=== PATIENT | female | born 1935 | race African-American/Black ===

== ENCOUNTER 2016-09-15 16:11 | Inpatient (IN) | payer MEDICARE, OTHER ==
[~2016-09-15] VITALS: Ht 165.1 cm; Wt 145.3 kg
[2016-09-15 18:00] VITALS: BP 140/71
[2016-09-15 20:00] VITALS: BP 115/51
[2016-09-15 20:16] LABS: BASOPHILS % (AUTO) 2.1 % (0.0-2.0); EOSINOPHILS % (AUTO) 3.6 % (0.0-3.0); LYMPHOCYTES % (AUTO) 14.7 % (20.0-45.0); MEAN CORPUSCULAR HEMOGLOBIN 28.6 PG (27.0-31.0); MEAN CORPUSCULAR HGB CONC 30.5 G/DL (32.0-36.0); MEAN CORPUSCULAR VOLUME 94 FL (80-99); MONOCYTES % (AUTO) 9.3 % (1.0-10.0); NEUTROPHILS % (AUTO) 70.2 % (45.0-75.0); PLATELET COUNT 172 K/UL (150-450); RED BLOOD COUNT 3.61 M/UL (4.20-5.40)
[2016-09-15 20:31] LABS: ALANINE AMINOTRANSFERASE 13 U/L (3-33); ANION GAP 11 (5-15); ASPARTATE AMINO TRANSFERASE 15 U/L (5-40); CALCIUM 9.1 mg/dL (8.6-10.2); CARBON DIOXIDE 30 mEQ/L (20-30); CHLORIDE 102 mEQ/L (98-107); CREATININE 1.1 mg/dL (0.5-0.9); HEMOLYSIS 1; POTASSIUM 4.1 mEQ/L (3.4-4.9); SODIUM 143 mEQ/L (135-145); TOTAL PROTEIN 6.5 g/dL (6.6-8.7)
[2016-09-15] MEDS: NovoLOG Insulin Flexpen SUBQ SCH (22:10)
[2016-09-15] MEDS ORDERED: clonazePAM 0.5mg tab ORAL PRN (22:45)
[2016-09-15] MEDS ORDERED: HydrALAZINE 25mg tab ORAL PRN (22:45)
[2016-09-16] MEDS: guaiFENesin w/Codeine 5ml Liq ud ORAL PRN (00:27)
[2016-09-16 00:36] VITALS: BP 132/40
[2016-09-16] MEDS ORDERED: Zolpidem 5mg tab ORAL PRN (00:45)
[2016-09-16] MEDS: DuoNeb 0.5-3(2.5)mg/3ml neb HHN SCH ×6 (03:20→23:36)
[2016-09-16 04:05] VITALS: BP 120/62
[2016-09-16] MEDS: Glimepiride 4mg tab ORAL SCH ×2 (06:22→11:34)
[2016-09-16] MEDS: sitaGLIPtin 50mg tab ORAL SCH (06:22)
[2016-09-16] MEDS: NovoLOG Insulin Flexpen SUBQ SCH ×4 (06:24→21:29)
[2016-09-16 07:57] VITALS: BP 106/63
[2016-09-16] MEDS: metFORMIN 500mg tab ORAL SCH ×2 (08:50→18:00)
[2016-09-16] MEDS: Spironolactone 25mg tab ORAL SCH (08:50)
[2016-09-16] MEDS: KCl 10% 20 mEq/15ml liquid NG SCH ×2 (08:50→17:53)
[2016-09-16 11:38] VITALS: BP 135/56
--- NOTE | 2016-09-16 11:41 | Diagnostic Imaging Report ---
Indications: Shortness of breath Technique: Portable AP chest Findings: Comparison: 01/11/2011 Cardiomegaly, pulmonary vascular redistribution, bilateral interstitial prominence all again noted, not significantly changed. No pleural or other new abnormality demonstrated. IMPRESSION: Bilateral congestive changes, persistent versus recurrent since previous exam
--- NOTE | 2016-09-16 13:48 | History and Physical Report ---
DATE OF ADMISSION: 09/15/2016 NOTE: VERY POOR AUDIO QUALITY REASON FOR ADMISSION: Shortness of breath. HISTORY OF PRESENT ILLNESS: This is an female, age 81 came . She was seen in my office yesterday complaining of progressive shortness of breath and leg swelling described increasing day to day diuretic therapy. She has cough, congestion, and wheezing, but was able to manage that with her inhaler. The patient did not have any chest pain. She has been compliant with medications and dietary discretion . PAST MEDICAL HISTORY: Hypertension, hypertensive heart disease, conduction system disease, chronic atrial fibrillation, sxx-dirtvdl-uohqjvgho diabetes mellitus, diabetic nephropathy, diabetic neuropathy, obesity, peripheral artery disease, osteoarthritis, degenerative disk disease, diastolic dysfunction with chronic congestive heart failure, and COPD. MEDICATIONS: Prior to admission, reviewed and reconciled. ALLERGIES: None. SOCIAL HISTORY: Chronic smoker. No alcohol or substance abuse. FAMILY HISTORY: Notable for diabetes. REVIEW OF SYSTEMS: No fevers or chills. No history of retinopathy or hearing loss. No history of thyroid disorder. She is on antiaggressive therapy as well as rxf-chhcdxf-sazczffgq diabetes. There is no history of seizure or stroke. She does not have neuropathy. She had myocardial perfusion scan revealing flow-limiting coronary artery disease. Her most recent echocardiogram revealed normal ejection fraction, concentric hypertrophy, and mild degenerative joint disease, and minimally elevated pulmonary artery systolic pressure. She does have chronic atrial fibrillation and is on cardioembolic prophylaxis with for several years. She does have a history of COPD and has been on steroids and in the past. She uses inhaler therapy regularly. PHYSICAL EXAMINATION: GENERAL: female in mild respiratory distress. VITAL SIGNS: Blood pressure 130/71, pulse 69, respirations 23, and afebrile. HEENT: Conjunctivae pink. Sclerae are anicteric. Eyes, pupils are reactive . Oropharynx clear. Mucous membranes dry. NECK: Supple. Jugular venous pressure elevated. LUNGS: Diminished breath sounds with basilar rales. CARDIAC: Irregularly irregular. Distant S1 and S2. No murmur. ABDOMEN: with no discrete masses. Obese and soft. There is no guarding or rebound. Cannot palpate . EXTREMITIES: With 2+ to 3+ bilateral pretibial edema. Distal pulses are diminished, but capillary refill is adequate. NEUROLOGIC: Strength is symmetric. The patient ambulates with the use of a walker. LABORATORY AND IMAGING DATA: White count is 7, hemoglobin 7.3. Sodium 143, potassium 4.9, bicarbonate 30, BUN 20, creatinine 1.1, glucose 230, Pro-natriuretic peptide is 2673, albumin 3.4, and TSH 1.7. An echocardiogram yesterday also revealed atrial fibrillation with nonspecific ST-T wave changes and rate control at 71 beats per minute. IMPRESSION: 1. Acute on chronic diastolic congestive heart failure. 2. Atrial fibrillation chronic and rate controlled. 3. coagulopathy. 4. Nbt-bmuqtes-tsmtphnna diabetes mellitus with hyperglycemia. 5. Minimal protein-calorie malnutrition. 6. Gastrointestinal disease . 7. History of chronic obstructive pulmonary disease with paroxysmal bronchospasm. PLAN: 1. Diet, which was intravenously diuretic. 2. Cardiac non-insulin. 3. Titrate antihypertensive regimen. 4. Insulin coverage by sliding scale. 5. Titrate oral diabetic regimen. 6. Continue cardiac diet prophylaxis with . 7. Inhaled bronchodilators as well as steroids. Acute bronchospasm . Juan Harris M.D. DR: SINGH JOB#: [id number] CC:
[2016-09-16 16:10] VITALS: BP 119/50
[2016-09-16 18:17] LABS: APPEARANCE,URINE CLEAR; KETONES,URINE NEGATIVE (NEGATIVE); LEUKOCYTE ESTERASE ,URINE 3+ (NEGATIVE); NITRITE,URINE NEGATIVE (NEGATIVE); PH,URINE 5 (4.5-8.0); PROTEIN,URINE NEGATIVE (NEGATIVE); UROBILINOGEN,URINE NORMAL MG/DL (0.0-1.0)
[2016-09-16 18:27] LABS: BACTERIA,URINE OCCASIONAL /HPF; RBC,URINE 0-2 /HPF (0 - 2); SQUAMOUS EPITHELIAL CELL,UR OCCASIONAL /LPF (NONE/OCC)
[2016-09-16 20:00] VITALS: BP 122/58
[2016-09-17] MEDS: guaiFENesin w/Codeine 5ml Liq ud ORAL PRN (00:04)
[2016-09-17 00:27] VITALS: BP 124/49
[2016-09-17] MEDS: DuoNeb 0.5-3(2.5)mg/3ml neb HHN SCH ×6 (02:42→23:31)
--- NOTE | 2016-09-17 02:58 | Progress Note ---
DATE: 09/16/2016 INTERNAL MEDICINE AND CARDIOLOGY PROGRESS NOTE SUBJECTIVE: The patient remains on IV diuretics and anti-failure regimen. Her glucose is being monitored with Accu-Cheks. monitoring engineer revealed atrial fibrillation that is rate controlled with no pauses. The patient's urine output has increased from her baseline. She has refused a Rainey catheter for measurement. OBJECTIVE: VITAL SIGNS: Blood pressure 122/58, pulse 72, and respirations 18. HEENT: Obese neck. LUNGS: Bilateral rales. No wheezing. HEART: Irregularly irregular rhythm. Normal S1 and S2. EXTREMITIES: Revealed 2+ to 3+ pitting edema bilaterally. LABORATORY DATA: Pro-natriuretic peptide on admission was 2673. IMPRESSION: 1. Acute on chronic diastolic congestive heart failure. 2. Hypertensive heart disease. 3. Atrial fibrillation, rate controlled. 4. Type 2 diabetes mellitus. 5. Obesity. PLAN: 1. Optimize blood glucose control. 2. Continue diuresis. 3. Titrate respiratory therapy. 4. Continue for cardioembolic prophylaxis. Juan Harris M.D. DR: JOANNE JOB#: [id number] CC:
[2016-09-17 04:24] VITALS: BP 103/71
[2016-09-17 05:58] LABS: BASOPHILS % (AUTO) 2.6 % (0.0-2.0); EOSINOPHILS % (AUTO) 4.8 % (0.0-3.0); LYMPHOCYTES % (AUTO) 20.7 % (20.0-45.0); MEAN CORPUSCULAR HEMOGLOBIN 28.9 PG (27.0-31.0); MEAN CORPUSCULAR HGB CONC 31.2 G/DL (32.0-36.0); MEAN CORPUSCULAR VOLUME 93 FL (80-99); MEAN PLATELET VOLUME 7.5 FL (6.5-10.1); MONOCYTES % (AUTO) 8.2 % (1.0-10.0); NEUTROPHILS % (AUTO) 63.7 % (45.0-75.0); PLATELET COUNT 186 K/UL (150-450); RED BLOOD COUNT 3.81 M/UL (4.20-5.40); RED CELL DISTRIBUTION WIDTH 15.2 % (11.6-14.8); WHITE BLOOD COUNT 7.3 K/UL (4.8-10.8)
[2016-09-17] MEDS: sitaGLIPtin 50mg tab ORAL SCH (06:21)
[2016-09-17] MEDS: Glimepiride 4mg tab ORAL SCH ×2 (06:21→11:23)
[2016-09-17] MEDS: NovoLOG Insulin Flexpen SUBQ SCH ×4 (06:24→20:51)
[2016-09-17 06:27] LABS: ALANINE AMINOTRANSFERASE 13 U/L (3-33); ANION GAP 12 (5-15); ASPARTATE AMINO TRANSFERASE 14 U/L (5-40); CALCIUM 9.1 mg/dL (8.6-10.2); CARBON DIOXIDE 28 mEQ/L (20-30); CHLORIDE 101 mEQ/L (98-107); CREATININE 1.2 mg/dL (0.5-0.9); HEMOLYSIS 2; MAGNESIUM 1.6 mg/dL (1.7-2.5); POTASSIUM 4.5 mEQ/L (3.4-4.9); SODIUM 141 mEQ/L (135-145); TOTAL PROTEIN 6.7 g/dL (6.6-8.7)
[2016-09-17 07:52] VITALS: BP 132/57
[2016-09-17] MEDS: metFORMIN 500mg tab ORAL SCH ×2 (08:35→18:33)
[2016-09-17] MEDS: KCl 10% 20 mEq/15ml liquid NG SCH ×2 (08:35→18:34)
[2016-09-17] MEDS: Spironolactone 25mg tab ORAL SCH (08:35)
[2016-09-17 11:21] VITALS: BP 99/49
[2016-09-17 16:00] VITALS: BP 118/58
[2016-09-17 20:00] VITALS: BP 116/61
[2016-09-18 00:15] VITALS: BP 132/59
[2016-09-18] MEDS: DuoNeb 0.5-3(2.5)mg/3ml neb HHN SCH ×6 (02:07→23:00)
[2016-09-18 04:14] VITALS: BP 123/70
[2016-09-18] MEDS: Glimepiride 4mg tab ORAL SCH ×2 (06:30→11:30)
[2016-09-18] MEDS: sitaGLIPtin 50mg tab ORAL SCH (06:30)
[2016-09-18] MEDS: NovoLOG Insulin Flexpen SUBQ SCH ×4 (06:30→21:28)
[2016-09-18 08:00] VITALS: BP 121/55
[2016-09-18] MEDS: metFORMIN 500mg tab ORAL SCH ×2 (09:00→17:02)
[2016-09-18] MEDS: KCl 10% 20 mEq/15ml liquid NG SCH ×2 (09:03→17:01)
[2016-09-18] MEDS: Spironolactone 25mg tab ORAL SCH (09:07)
[2016-09-18 12:00] VITALS: BP 113/60
[2016-09-18 16:00] VITALS: BP 119/53
[2016-09-18] MEDS: guaiFENesin w/Codeine 5ml Liq ud ORAL PRN (17:01)
[2016-09-18 20:00] VITALS: BP 131/64
[2016-09-19] VITALS: BP 140/55
--- NOTE | 2016-09-19 00:57 | Progress Note ---
DATE: 09/17/2016 CARDIOLOGY PROGRESS NOTE Late entry for 09/17/2016. SUBJECTIVE: The patient continues to have shortness of breath with movement out of bed and leg swelling. He has not had chest pain. His urine output is notably good, but we have not been able to calculate strict Is and Os. OBJECTIVE: VITAL SIGNS: Blood pressure 118/58, pulse 64, and respirations 21, afebrile, monitor his atrial fibrillation. NECK: Obese. LUNGS: Diminished breath sounds. Few rales. CARDIAC: Irregularly irregular rhythm. Normal S1, S2. ABDOMEN: Soft. EXTREMITIES: With 2 to 3+ edema. LABORATORY DATA: White count 7.3, hemoglobin 11, BUN 24, creatinine 1.2, glucose 220, pro-natriuretic peptide 2700. IMPRESSION: 1. Jtkyg-mw-ucxzvmv diastolic congestive heart failure. 2. Atrial fibrillation with controlled ventricular response. 3. Hypertensive heart disease with controlled blood pressure. 4. Forle-ql-rdsuabx kidney insufficiency. 5. Non-insulin requiring diabetes mellitus with hyperglycemia. 6. Chronic obstructive pulmonary disease with no active bronchospasm PLAN: 1. Continue intravenous diuresis advanced dosing. 2. Continue current antihypertensive. 3. Followup urine studies. 4. Cardioembolic prophylaxis with Pradaxa. 5. Titrate diabetic regimen and monitor renal parameters. 6. Continue inhaled bronchodilators. Juan Harris M.D. DRShreya BENJAMIN JOB#: [id number] CC:
--- NOTE | 2016-09-19 01:08 | Progress Note ---
DATE: 09/18/2016 CARDIOLOGY PROGRESS NOTE SUBJECTIVE: The patient has a poor appetite. Her sugar is low, but no hypoglycemic episodes noted. The patient has no chest pain. She has slightly less shortness of breath, but still has orthopnea. Her leg swelling is better. OBJECTIVE: VITAL SIGNS: Blood pressure 121/55, pulse 72, respirations 18, and room air oxygen saturation 97%. NECK: Obese. LUNGS: With diminished breath sounds. CARDIAC: Irregularly irregular. Normal S1 and S2. ABDOMEN: Obese. EXTREMITIES: With 1+ dependent edema. IMPRESSION: Slow progress. Continued signs of acute and chronic diastolic congestive heart failure. Atrial fibrillation is rate controlled. Chronic obstructive pulmonary disease is without active bronchospasm. Diabetes mellitus with low blood glucose state due to poor oral intake. PLAN: We will decrease dose of oral hypoglycemics for now. We will continue IV diuresis. We will recheck laboratory values including natriuretic peptide assay and adjust regimen accordingly. Continue Pradaxa for cardioembolic prophylaxis. Continue inhaled bronchodilators avoiding steroids. Juan Harris M.D. DR: Essie JOB#: [id number] CC:
[2016-09-19] MEDS: DuoNeb 0.5-3(2.5)mg/3ml neb HHN SCH ×4 (03:00→15:00)
[2016-09-19 04:00] VITALS: BP 122/48
[2016-09-19] MEDS: sitaGLIPtin 50mg tab ORAL SCH (06:16)
[2016-09-19] MEDS: NovoLOG Insulin Flexpen SUBQ SCH ×4 (06:16→21:15)
[2016-09-19] MEDS: Glimepiride 4mg tab ORAL SCH (06:17)
[2016-09-19 07:55] LABS: BASOPHILS % (AUTO) 1.7 % (0.0-2.0); EOSINOPHILS % (AUTO) 5.6 % (0.0-3.0); LYMPHOCYTES % (AUTO) 20.7 % (20.0-45.0); MEAN CORPUSCULAR HGB CONC 29.9 G/DL (32.0-36.0); MEAN CORPUSCULAR VOLUME 94 FL (80-99); MEAN PLATELET VOLUME 7.6 FL (6.5-10.1); MONOCYTES % (AUTO) 12.1 % (1.0-10.0); NEUTROPHILS % (AUTO) 59.9 % (45.0-75.0); PLATELET COUNT 185 K/UL (150-450); RED BLOOD COUNT 3.74 M/UL (4.20-5.40); RED CELL DISTRIBUTION WIDTH 15.2 % (11.6-14.8); WHITE BLOOD COUNT 6.1 K/UL (4.8-10.8)
[2016-09-19 08:00] VITALS: BP 124/59
[2016-09-19 08:20] LABS: ALANINE AMINOTRANSFERASE 11 U/L (3-33); ALBUMIN/GLOBULIN RATIO 1.2 (1.0-2.7); ANION GAP 12 (5-15); ASPARTATE AMINO TRANSFERASE 16 U/L (5-40); CALCIUM 9.5 mg/dL (8.6-10.2); CARBON DIOXIDE 31 mEQ/L (20-30); CHLORIDE 99 mEQ/L (98-107); CREATININE 1.3 mg/dL (0.5-0.9); HEMOLYSIS 2; POTASSIUM 4.6 mEQ/L (3.4-4.9); SODIUM 142 mEQ/L (135-145); TOTAL PROTEIN 6.5 g/dL (6.6-8.7)
[2016-09-19] MEDS: KCl 10% 20 mEq/15ml liquid NG SCH ×2 (08:57→17:28)
[2016-09-19] MEDS: Spironolactone 25mg tab ORAL SCH (08:57)
[2016-09-19] MEDS: metFORMIN 500mg tab ORAL SCH ×2 (08:59→17:27)
--- NOTE | 2016-09-19 09:29 | General Progress Note ---
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 ml/min ICD Codes: N18.2 - Chronic kidney disease, stage 2 (mild) SNOMED: 608073324 Status: stable, progressing Assessment/Plan diuresis resp care monitor lytes/renal fxn o2 monitor BS Subjective ROS Limited/Unobtainable: No Constitutional: Reports: malaise, weakness HEENT: Reports: no symptoms Cardiovascular: Reports: chest pain, edema Respiratory: Reports: orthopnea, shortness of breath Gastrointestinal/Abdominal: Reports: no symptoms Genitourinary: Reports: no symptoms Neurologic/Psychiatric: Reports: no symptoms Endocrine: Reports: no symptoms Hematologic/Lymphatic: Reports: no symptoms Allergies: Coded Allergies: No Known Allergies (Verified Allergy, Unknown, 09/23/10) All Systems: reviewed and negative except above Subjective chart reviewed. events noted. less sob. "hates" the food Objective Last 24 Hour Vital Signs Date Time Temp Pulse Resp B/P Pulse Ox O2 Delivery O2 Flow Rate FiO2 09/19/16 09:17 48 124/59 09/19/16 09:03 124/59 09/19/16 07:00 Room Air 09/19/16 07:00 Room Air 09/19/16 04:00 48 09/19/16 04:00 96.4 72 20 122/48 95 Room Air 09/19/16 03:06 Room Air 09/19/16 03:05 Room Air 09/19/16 00:00 59 09/19/16 00:00 97.7 64 20 140/55 98 Room Air 09/18/16 23:11 Room Air 09/18/16 23:10 Room Air 09/18/16 20:00 97.5 63 22 131/64 98 Room Air 09/18/16 20:00 60 09/18/16 19:47 Room Air 09/18/16 19:46 Room Air 09/18/16 16:00 97.8 65 22 119/53 97 Room Air 09/18/16 16:00 66 09/18/16 15:48 Room Air 09/18/16 15:46 Room Air 09/18/16 12:00 97.9 70 18 113/60 97 Room Air 09/18/16 12:00 65 09/18/16 11:22 Room Air 09/18/16 11:21 Room Air Intake and Output 09/18/16 09/19/16 19:00 07:00 Intake Total 590 ml 510 ml Balance 590 ml 510 ml Intake Oral 590 ml 360 ml IV Total 150 ml # Voids 3 2 Laboratory Tests 09/19/16 06:05: White Blood Count 6.1, Red Blood Count 3.74L, Hemoglobin 10.5L, Hematocrit 35.1L , Mean Corpuscular Volume 94, Mean Corpuscular Hemoglobin 28.0, Mean Corpuscular Hemoglobin Concent 29.9L, Red Cell Distribution Width 15.2H, Platelet Count 185, Mean Platelet Volume 7.6, Neutrophils (%) (Auto) 59.9, Lymphocytes (%) (Auto) 20.7, Monocytes (%) (Auto) 12.1H, Eosinophils (%) (Auto) 5.6H, Basophils (%) (Auto) 1.7, Sodium Level 142, Potassium Level 4.6, Chloride Level 99, Carbon Dioxide Level 31H, Anion Gap 12, Blood Urea Nitrogen 33H, Creatinine 1.3H, Estimat Glomerular Filtration Rate , Glucose Level 107H, Calcium Level 9.5, Magnesium Level 2.0, Total Bilirubin 0.3, Aspartate Amino Transf (AST/SGOT) 16, Alanine Aminotransferase (ALT/SGPT) 11, Alkaline Phosphatase 40, Pro-B-Type Natriuretic Peptide 1808H, Total Protein 6.5L, Albumin 3.6, Globulin 2.9, Albumin/Globulin Ratio 1.2 Height (Feet): 5 Height (Inches): 5.00 Weight (Pounds): 333 General Appearance: WD/WN, alert Neck: supple Cardiovascular: regular rhythm Respiratory/Chest: rhonchi - bilaterally, expiratory wheezing Abdomen: normal bowel sounds, non tender, soft, no organomegaly Edema: mild edema 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
[2016-09-19] MEDS ORDERED: Tubing IV Secondary IV ONE (14:43)
[2016-09-19] MEDS ORDERED: NS 275ml ONE (14:43)
[2016-09-19 16:00] VITALS: BP 114/46
[2016-09-19 20:00] VITALS: BP 118/52
[2016-09-20] VITALS: BP 123/57
[2016-09-20] MEDS: DuoNeb 0.5-3(2.5)mg/3ml neb HHN SCH ×3 (00:14→15:32)
[2016-09-20] MEDS: guaiFENesin w/Codeine 5ml Liq ud ORAL PRN (00:43)
[2016-09-20 04:00] VITALS: BP 123/58
[2016-09-20] MEDS: Glimepiride 4mg tab ORAL SCH ×2 (06:30→06:43)
[2016-09-20] MEDS: NovoLOG Insulin Flexpen SUBQ SCH ×2 (06:30→12:04)
[2016-09-20] MEDS: sitaGLIPtin 50mg tab ORAL SCH ×2 (06:30→06:43)
[2016-09-20 08:00] VITALS: BP 93/56
--- NOTE | 2016-09-20 08:12 | General Progress Note ---
Assessment/Plan Problem List: (1) Congestive heart failure ICD Codes: I50.9 - Heart failure, unspecified SNOMED: 87793406 (2) Diabetes ICD Codes: E11.9 - Type 2 diabetes mellitus without complications SNOMED: 63108838 (3) Hypertension ICD Codes: I10 - Essential (primary) hypertension SNOMED: 00109197 (4) COPD (chronic obstructive pulmonary disease) ICD Codes: J44.9 - Chronic obstructive pulmonary disease, unspecified SNOMED: 91430841 (5) CKD (chronic kidney disease) stage 2, GFR 60-89 ml/min ICD Codes: N18.2 - Chronic kidney disease, stage 2 (mild) SNOMED: 130580355 Status: stable, progressing Assessment/Plan diuresis resp care monitor lytes/renal fxn o2 monitor BS dc when cleaed by cards Subjective ROS Limited/Unobtainable: No Constitutional: Reports: malaise, weakness HEENT: Reports: no symptoms Cardiovascular: Reports: no symptoms Respiratory: Reports: SOB with excertion, cough Gastrointestinal/Abdominal: Reports: no symptoms Genitourinary: Reports: no symptoms Neurologic/Psychiatric: Reports: no symptoms Endocrine: Reports: no symptoms Hematologic/Lymphatic: Reports: anemia Allergies: Coded Allergies: No Known Allergies (Verified Allergy, Unknown, 09/23/10) All Systems: reviewed and negative except above Subjective no events. less sob. no chest pain . Objective Last 24 Hour Vital Signs Date Time Temp Pulse Resp B/P Pulse Ox O2 Delivery O2 Flow Rate FiO2 09/20/16 04:00 97.5 70 16 123/58 91 Room Air 09/20/16 03:40 66 09/20/16 00:30 58 18 100 Room Air 09/20/16 00:16 21 09/20/16 00:15 65 20 97 Room Air 21 09/20/16 00:00 97.5 70 20 123/57 92 09/19/16 23:45 64 09/19/16 20:00 97.8 62 20 118/52 96 Room Air 09/19/16 18:54 60 09/19/16 16:23 62 09/19/16 16:00 97.8 74 21 114/46 97 Room Air 09/19/16 15:18 Room Air 09/19/16 15:18 Room Air 09/19/16 12:00 60 09/19/16 11:35 57 18 100 Room Air 09/19/16 11:30 21 09/19/16 11:30 58 18 98 Room Air 21 09/19/16 09:17 48 124/59 09/19/16 09:03 124/59 Intake and Output 09/19/16 09/20/16 19:00 07:00 Intake Total 120 ml 240 ml Output Total 500 ml 200 ml Balance -380 ml 40 ml Intake Oral 120 ml 240 ml Output Urine Total 500 ml 200 ml # Voids 2 3 # Bowel Movements 1 Height (Feet): 5 Height (Inches): 5.00 Weight (Pounds): 320 Objective General Appearance: WD/WN, alert Neck: supple Cardiovascular: regular rhythm Respiratory/Chest: rhonchi - bilaterally, expiratory wheezing Abdomen: normal bowel sounds, non tender, soft, no organomegaly Edema: mild edema 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
[2016-09-20] MEDS: metFORMIN 500mg tab ORAL SCH (08:50)
[2016-09-20] MEDS: KCl 10% 20 mEq/15ml liquid NG SCH (08:51)
[2016-09-20] MEDS: Spironolactone 25mg tab ORAL SCH (09:00)
[2016-09-20 12:00] VITALS: BP 129/52
[2016-09-20] MEDS ORDERED: Calamine Lotion 4oz TOPIC PRN (13:30)
[2016-09-20] MEDS ORDERED: Hydrocortisone 1% Oint 30gm TOPIC PRN (13:30)
[2016-09-20 14:12] LABS: ALANINE AMINOTRANSFERASE 8 U/L (3-33); ALBUMIN/GLOBULIN RATIO 1.2 (1.0-2.7); ANION GAP 13 (5-15); ASPARTATE AMINO TRANSFERASE 15 U/L (5-40); CALCIUM 9.3 mg/dL (8.6-10.2); CARBON DIOXIDE 30 mEQ/L (20-30); CHLORIDE 95 mEQ/L (98-107); CREATININE 1.5 mg/dL (0.5-0.9); HEMOLYSIS 5; MAGNESIUM 1.8 mg/dL (1.7-2.5); POTASSIUM 4.7 mEQ/L (3.4-4.9); SODIUM 138 mEQ/L (135-145); TOTAL PROTEIN 6.5 g/dL (6.6-8.7)
[2016-09-20] MEDS ORDERED: GLUCOPHAGE1000 MG ORAL (14:59)
[2016-09-20] MEDS ORDERED: CALAMINE LOTIO177 ML TP (14:59)
[2016-09-20] MEDS ORDERED: PRADAXA75 MG ORAL (14:59)
[2016-09-20] MEDS ORDERED: NORVASC10 MG ORAL (14:59)
[2016-09-20] MEDS ORDERED: ALDACTONE25 MG ORAL (14:59)
[2016-09-20] MEDS ORDERED: HYDROCORTISONE-30 GM TOPIC (14:59)
[2016-09-20] MEDS ORDERED: JANUVIA50 MG ORAL (14:59)
[2016-09-20] MEDS ORDERED: CLONAZEPAM0.5 M1 PO (14:59)
[2016-09-20] MEDS ORDERED: ALLOPURINOL300 M1 ORAL (14:59)
[2016-09-20] MEDS ORDERED: HYDRALAZINE HCL25 M2 PO (14:59)
[2016-09-20] MEDS ORDERED: SYNTHROID100 MCG ORAL (14:59)
[2016-09-20] MEDS ORDERED: GLIMEPIRIDE2 MG ORAL (14:59)
[2016-09-20] MEDS ORDERED: FUROSEMIDE40 MG ORAL (14:59)
[2016-09-20] MEDS ORDERED: Tubing IV Secondary IV ONE (17:39)
--- NOTE | 2016-09-20 18:17 | Progress Note ---
DATE: 09/19/2016 CARDIOLOGY PROGRESS NOTE SUBJECTIVE: The patient has less shortness of breath and still with leg swelling. Glucose control is better. OBJECTIVE: VITAL SIGNS: Blood pressure is 124/59, heart rate 48 to 72, respiratory rate 20 to 22, and she is afebrile. Oxygen saturation on room air is 96%. LUNGS: With diminished breath sounds. CARDIAC: Irregularly irregular. Normal S1 and S2. ABDOMEN: Soft. EXTREMITIES: There is trace to 1+ dependent edema. LABORATORY DATA: White count is 6.1 and hemoglobin 10.5. Sodium is 142, potassium 4.6, bicarbonate 31, BUN 33, and creatinine 1.3. Pro-natriuretic peptide decreased to 1800. IMPRESSION: 1. Acute on chronic diastolic congestive heart failure, improved. 2. Type 2 diabetes mellitus, stabilizing. 3. Acute on chronic renal insufficiency secondary to diuresis. 4. Chronic obstructive pulmonary disease with no acute bronchospasm at this time. 5. Atrial fibrillation with bradyarrhythmias, chronic and asymptomatic. PLAN: 1. Decrease diuretics dosing. 2. Titrate diabetic regimen. 3. Continue Pradaxa for cardioembolic prophylaxis. 4. Monitor cardiorenal parameters. 5. Cardiac monitoring. 6. Presently no urgent indication for permanent pacemaker. Juan Harris M.D. DR: Olivier JOB#: [id number] CC:
--- NOTE | 2016-09-21 16:05 | Discharge Summary ---
Discharge Summary Hospital Course Date of Admission Sep 15, 2016 at 16:11 Date of Discharge Sep 20, 2016 at 17:40 Admitting Diagnosis CHF exacerbation Reason for Hospitalization: leg edema, increasing dyspnea, cough, wheezing HPI Ariadna Munguia is a 81 year old female who was admitted on Sep 15, 2016 at 16:11 for Congestive Heart Failure exacerbation Patient was seen in dr Krishnan office day prior to admission complaining of progressive shortness of breath and leg swelling described increasing day to day diuretic therapy. presented with cough, congestion, and wheezing able to manage pulmonary symptoms with inhaler denies chest pain patient reported being compliant with medication and dietary regimen Consultations IM dr Ivey [facility] Course tele chronic A fib, rate controlled with CCB a/coagulation with Pradaxa pro BNP elevated, CXR with bilateral congestive changes, persistent versus recurrent c/w previous exam diuretic Lasix IV bid and Spironolactone, monitor renal parameters, lytes, I/ O pro BNP with significant trend down after intensive diuretic therapy worsening renal parameters, patient with known hx of CKD st 2, avoid nephrotoxic off IV Lasix and on po small dose daily, along with Spironolactone BP management with CCB and AMANDA, stable BS management with SS of insulin prn and oral antiglycemic ; dose of oral up- titrated O2 HHN prn antitussive prn bronchospasm resolved no evidence of COPD exacerbation stable fro dc home will follow up with dr Krishnan as outpatient , close monitoring of cardiopulmonary status, renal parameters , BS CXR blateral congestive changes, persistent versus recurrent s Discharge Medications Continued Medications: Allopurinol* (Allopurinol*) 300 Mg Tablet 300 MG ORAL DAILY, TAB Amlodipine Besylate (Norvasc) 10 Mg Tablet 10 MG ORAL DAILY, TAB Calamine/Zinc Oxide (Calamine Lotion*) 177 Ml Suspension 1 APPLIC TP, ML 0 Refills Clonazepam (Clonazepam) 0.5 Mg Tab.rapdis 0.5 MG PO QHS for Insomnia, TAB Dabigatran Etexilate Mesylate (Pradaxa) 75 Mg Capsule 75 MG ORAL EVERY 12 HOURS, CAP Furosemide* (Lasix*) 40 Mg Tablet 40 MG ORAL BID, TAB Glimepiride (Glimepiride) 2 Mg Tablet 4 MG ORAL BIDAC, TAB Hydralazine HCl (Hydralazine HCl) 25 Mg Tablet 25 MG PO, TAB Hydrocortisone/Aloe Vera 1%* (Hydrocortisone-Aloe 1% Cream*) Y Cr 1 APPLIC TOPIC Q6H PRN for Itching, #30 GM Levothyroxine Sodium* (Synthroid*) 100 Mcg Tablet 100 MCG ORAL DAILY, TAB Take in the morning on an empty stomach, at least 30 minutes before food. Metformin Hcl (Glucophage) 1,000 Mg Tablet 1000 MG ORAL BID, TAB Sitagliptin (Januvia) 50 Mg Tablet 50 MG ORAL ACBREAKFAST, TAB Discontinued Medications: Glimepiride (Glimepiride) 2 Mg Tablet 2 MG ORAL BIDAC, TAB Discharge Condition Upon Discharge: improving, stable Discharge Disposition Patient was discharged to Home (01) Discharge Diagnoses: (1) Acute on chronic diastolic (congestive) heart failure (2) Chronic a-fib (3) HTN (hypertension) (4) Non-insulin dependent diabetes mellitus treated with insulin (5) Acute bronchospasm (6) CKD (chronic kidney disease) stage 2, GFR 60-89 ml/min (7) Mild protein-calorie malnutrition Discharge Instructions Discharge Instructions Follow up with: PMD Call MD/Return to Hospital if: leg edema, dyspnea, cehst pain, palpitations , any signs of bleeding Diet: diabetic calorie control, cardiac 2 GM Na, low fat Activity: as tolerated Special Instructions I have been assigned to complete a D/C Summary on this account. I was not involved in the patient management For Congestive Heart Failure Reminder weight yourself daily report weight gain 3-5 Lb in 1-2 days continue medications as prescribed limit fluids 1-1.5 L/day report dyspnea, increased leg edema, chest pain, palpitations, Emilia Funk NP ([place]anchte[place]) Sep 21, 2016 16:05
--- NOTE | 2016-09-21 23:09 | Diagnostic Imaging Report ---
APPROVED REPORT CPT Code: 60849 Present Symptoms Lower Extremity Pain: Left Comments: Technically difficult study due to vessel depth (thigh area). Risk Factors Obesity LEFT LEG: Venous imaging reveals a patent deep venous system. There is no evidence of thrombus within the common femoral, popliteal or tibial segments. The greater saphenous vein is also within normal limits. Doppler indicates normal spontaneous flow within these segments. The mid to distal superficial femoral vein was not well visualized.
== END 2016-09-20 17:40 | disposition home or self-care (01) | DRG 291 ==
LOC: 2E 16:11
DX: I13.0 Hypertensive heart and chronic kidney disease with heart failure and stage 1 through stage 4 chronic kidney disease, or unspecified chronic kidney disease (principal); I50.33 Acute on chronic diastolic (congestive) heart failure; E11.21 Type 2 diabetes mellitus with diabetic nephropathy; E11.40 Type 2 diabetes mellitus with diabetic neuropathy, unspecified; E44.1 Mild protein-calorie malnutrition; Z68.43 Body mass index [BMI] 50.0-59.9, adult; E11.65 Type 2 diabetes mellitus with hyperglycemia; I48.2 Chronic atrial fibrillation; E66.9 Obesity, unspecified; J44.9 Chronic obstructive pulmonary disease, unspecified; N18.2 Chronic kidney disease, stage 2 (mild); J98.01 Acute bronchospasm
CPT/HCPCS: 36415; 71010; 80053; 81003; 82962; 83735; 83880; 84443; 85025; 87086; 93971; 94640; 94664; J1815; J7620

== ENCOUNTER 2017-05-11 17:21 | Inpatient (IN) | payer MEDICARE, OTHER ==
[~2017-05-11] VITALS: Ht 165.1 cm; Wt 164.3 kg
[~2017-05-11 17:21] MED LIST: ALDACTONE25 MG ORAL; ALLOPURINOL300 M1 ORAL; CALAMINE LOTIO177 ML TP; CLONAZEPAM0.5 M1 PO; FUROSEMIDE40 MG ORAL; GLIMEPIRIDE2 MG ORAL; GLUCOPHAGE1000 MG ORAL; HYDRALAZINE HCL25 M2 PO; HYDROCORTISONE-30 GM TOPIC; JANUVIA50 MG ORAL; NORVASC10 MG ORAL; PRADAXA75 MG ORAL; SYNTHROID100 MCG ORAL
[2017-05-11] MEDS: DuoNeb 0.5-3(2.5)mg/3ml neb HHN SCH (22:45)
[2017-05-11 23:27] LABS: KETONES,URINE NEGATIVE (NEGATIVE); LEUKOCYTE ESTERASE ,URINE 3+ (NEGATIVE); NITRITE,URINE POSITIVE (NEGATIVE); PH,URINE 6 (4.5-8.0); PROTEIN,URINE 3+ (NEGATIVE); UROBILINOGEN,URINE 1 MG/DL (0.0-1.0)
[2017-05-11 23:39] LABS: APPEARANCE,URINE SLIGHTLY CLOUDY
[2017-05-11 23:41] LABS: BACTERIA,URINE MANY /HPF; SQUAMOUS EPITHELIAL CELL,UR FEW /LPF (NONE/OCC); WBC,URINE 60-80 /HPF (0 - 2)
[2017-05-11 23:44] LABS: BASOPHILS % (AUTO) 2.3 % (0.0-2.0); EOSINOPHILS % (AUTO) 4.1 % (0.0-3.0); LYMPHOCYTES % (AUTO) 12.9 % (20.0-45.0); MEAN CORPUSCULAR HEMOGLOBIN 28.7 PG (27.0-31.0); MEAN CORPUSCULAR HGB CONC 32.6 G/DL (32.0-36.0); MEAN CORPUSCULAR VOLUME 88 FL (80-99); MEAN PLATELET VOLUME 7.5 FL (6.5-10.1); MONOCYTES % (AUTO) 17.3 % (1.0-10.0); NEUTROPHILS % (AUTO) 63.4 % (45.0-75.0); PLATELET COUNT 159 K/UL (150-450); RED BLOOD COUNT 4.09 M/UL (4.20-5.40); RED CELL DISTRIBUTION WIDTH 14.7 % (11.6-14.8); WHITE BLOOD COUNT 5.5 K/UL (4.8-10.8)
[2017-05-11 23:51] VITALS: BP 123/62
[2017-05-11 23:55] LABS: ANION GAP 11 (5-15); CALCIUM 9.5 mg/dL (8.6-10.2); CARBON DIOXIDE 28 mEQ/L (20-30); CHLORIDE 102 mEQ/L (98-107); CREATININE 1.3 mg/dL (0.5-0.9); HEMOLYSIS 1; MAGNESIUM 1.6 mg/dL (1.7-2.5); POTASSIUM 4.1 mEQ/L (3.4-4.9); SODIUM 141 mEQ/L (135-145)
[2017-05-12] VITALS: BP 133/74
[2017-05-12] MEDS: DuoNeb 0.5-3(2.5)mg/3ml neb HHN SCH ×4 (01:19→19:26)
[2017-05-12] MEDS ORDERED: Zolpidem 5mg tab ORAL PRN (01:30)
[2017-05-12] MEDS: NovoLOG Insulin Flexpen SUBQ SCH ×4 (07:09→21:00)
[2017-05-12 08:00] VITALS: BP 132/95
[2017-05-12] MEDS: Losartan 50mg tab ORAL SCH (10:34)
[2017-05-12] MEDS: Docusate 100mg cap ORAL SCH (10:34)
[2017-05-12] MEDS: LORazepam 1mg tab ORAL PRN ×3 (10:34→16:51)
[2017-05-12] MEDS: Glimepiride 4mg tab ORAL SCH ×3 (10:35→17:50)
[2017-05-12] MEDS: Eliquis 2.5mg tablet ORAL SCH ×2 (10:42→17:46)
[2017-05-12] MEDS: cefTRIAXone 1 GM in D5W 55 ML IVPB SCH (10:42)
--- NOTE | 2017-05-12 11:29 | Diagnostic Imaging Report ---
Indication: Dyspnea Comparison: 05/11/2017 A single view chest radiograph was obtained. Findings: Pulmonary vascularity is prominent and cephalized. There is suggestion of a very mild interstitial edema. The heart is enlarged. Bones are osteopenic. Impression: Mild interstitial edema suspected.
[2017-05-12 11:48] VITALS: BP 109/56
[2017-05-12 16:02] VITALS: BP 117/53
[2017-05-12] MEDS: Montelukast 10mg tablet ORAL SCH (16:21)
[2017-05-12 20:00] VITALS: BP 121/51
[2017-05-13] VITALS: BP 129/49
--- NOTE | 2017-05-13 00:30 | History and Physical Report ---
DATE OF ADMISSION: 05/11/2017 CHIEF COMPLAINT: Congestive heart failure exacerbation. HISTORY OF PRESENT ILLNESS: The patient is a very pleasant elderly female. She has a history of congestive heart failure, hypertension, diabetes, obesity, and COPD, who presented from home with complaints of worsening shortness of breath and lower extremity edema. The patient denies any fevers or chills. She has had mild nonproductive cough. She denies any medication or dietary noncompliance. She increased her diuretic therapy at home, but still had worsening shortness of breath and edema and is therefore admitted for further evaluation and care. PAST MEDICAL HISTORY: As above, history of paroxysmal atrial fibrillation and history of chronic kidney disease. PAST SURGICAL HISTORY: None. CURRENT MEDICATIONS: Reconciled and reviewed. ALLERGIES: None. FAMILY HISTORY: None. SOCIAL HISTORY: Negative for tobacco, ethanol, or drugs. REVIEW OF SYSTEMS: General: No fever or chills. HEENT: No headaches or visual changes. Cardiopulmonary: Positive shortness of breath and lower extremity edema, but no chest pain. Gastrointestinal: No nausea or vomiting. Genitourinary: No urgency or frequency. Musculoskeletal: No joint pain or swelling. Neurologic: No evidence of seizures. PHYSICAL EXAMINATION: VITAL SIGNS: Temperature 98 degrees, blood pressure 123/62, pulse 63, and respirations 20. GENERAL: The patient is a well-developed female, in no apparent distress. She is awake and alert. HEENT: Her pupils are equal, round, and reactive to light. Sclerae anicteric. Oropharynx clear. NECK: Supple. HEART: Regular rate and rhythm. LUNGS: Bibasilar rales. ABDOMEN: Soft, nontender, and nondistended. EXTREMITIES: Significant for 2+ pitting edema. LABORATORY AND DIAGNOSTIC DATA: White count 5, hemoglobin of 11. Creatinine of 1.3. Natriuretic peptide level was 7000. UA showed 6 to 8 WBCs. Chest x-ray is pending. ASSESSMENT: This is a pleasant female admitted with complaints of congestive heart failure exacerbation. 1. Congestive heart failure exacerbation. 2. Possible early urinary tract infection and sepsis. 3. Paroxysmal atrial fibrillation. 4. Obesity. 5. Hypertension. PLAN: IV diuretic therapy. We will add IV antibiotics. Followup urine cultures. Followup chest x-ray. Monitor electrolytes and renal function closely. Continue outpatient diabetic regimen. Continue sliding scale and Accu-Cheks. Mac Ivey M.D. DR: ISAK JOB#: [id number] CC:
[2017-05-13] MEDS: DuoNeb 0.5-3(2.5)mg/3ml neb HHN SCH ×4 (01:00→19:40)
[2017-05-13 04:00] VITALS: BP 135/54
--- NOTE | 2017-05-13 05:16 | Consultation ---
DATE OF CONSULTATION: 05/11/2017 CARDIOLOGY CONSULTATION REQUESTING PHYSICIAN: Mac vIey M.D. REASON FOR CONSULTATION: Congestive heart failure. HISTORY OF PRESENT ILLNESS: This is an 82-year-old female, who has a history of diastolic dysfunction, hypertensive heart disease, microvascular angina and chronic diastolic congestive heart failure. She has had progressive edema and abdominal distention with shortness of breath. She increased her diuretics, but did not improve. She is admitted for further care. PAST MEDICAL HISTORY: Hypertension, diastolic dysfunction with congestive heart failure, chronic atrial fibrillation, chronic venous insufficiency, insulin-requiring diabetes mellitus, diabetic neuropathy, chronic kidney disease, obesity, and chronic obstructive pulmonary disease. ALLERGIES: None. MEDICATIONS: Prior to admission, reviewed and reconciled. FAMILY HISTORY: Unremarkable. SOCIAL HISTORY: Prior smoker. No alcohol or substance abuse. REVIEW OF SYSTEMS: No fevers or chills. She has had cough, but no sputum production. There is no history of blood clots in the legs. She is on anticoagulation. She has had dysuria and frequency. She does have chronic kidney disease due to diabetes and uses insulin. She has frequent constipation otherwise no change in bowel habits. There is no history of seizure or stroke. Her most recent echocardiogram revealed normal ejection fraction, concentric hypertrophy, and a diastolic relaxation abnormality. PHYSICAL EXAMINATION: GENERAL: Afebrile. VITAL SIGNS: Blood pressure 123/62, pulse 63, and respiratory rate 20. HEENT: Conjunctivae are pink. Sclerae are anicteric. Oropharynx clear. Mucous membranes moist. NECK: Supple. Cannot assess jugular venous pressure due to obese neck. Pendulous breasts. LUNGS: Diminished breath sounds. No wheezing. Few rales bilaterally. HEART: Irregularly irregular rhythm. Normal S1 and S2 with no appreciable murmur. ABDOMEN: Otherwise soft. EXTREMITIES: Revealed 2 to 3+ bilateral pitting edema left slightly greater than right. LABORATORY AND DIAGNOSTIC DATA: White count 5 and hemoglobin is 11. Pro-natriuretic peptide is 7000. EKG revealed atrial fibrillation with slow ventricular response prior to admission. IMPRESSION: 1. Acute on chronic diastolic congestive heart failure. 2. Chronic atrial fibrillation with underlying conduction system disease. 3. Apixaban associated coagulopathy. 4. Urinary tract infection. 5. Obesity. 6. Chronic obstructive pulmonary disease with paroxysmal bronchospasm. 7. Insulin-requiring diabetes with multiple complications. PLAN: 1. Intravenous diuretic therapy. 2. Continue apixaban. 3. Check urinalysis. 4. Consider empiric antibiotics. 5. Cardiac monitoring. 6. Trend natriuretic peptide assay. 7. Bronchodilators as needed. 8. Insulin titration with sliding scale coverage. Juan Harris M.D. DR: CHELO JOB#: [id number] CC:
[2017-05-13] MEDS: NovoLOG Insulin Flexpen SUBQ SCH ×4 (06:18→21:00)
[2017-05-13 08:00] VITALS: BP 104/57
--- NOTE | 2017-05-13 08:06 | General Progress Note ---
Assessment/Plan Problem List: (1) UTI (urinary tract infection) ICD Codes: N39.0 - Urinary tract infection, site not specified SNOMED: 91280972 (2) Pyelonephritis ICD Codes: N12 - Tubulo-interstitial nephritis, not specified as acute or chronic SNOMED: 18270228 (3) Congestive heart failure ICD Codes: I50.9 - Heart failure, unspecified SNOMED: 45873978 (4) COPD (chronic obstructive pulmonary disease) ICD Codes: J44.9 - Chronic obstructive pulmonary disease, unspecified SNOMED: 07995168 (5) Diabetes ICD Codes: E11.9 - Type 2 diabetes mellitus without complications SNOMED: 78744525 (6) Hypertension ICD Codes: I10 - Essential (primary) hypertension SNOMED: 49095579 (7) CKD (chronic kidney disease) stage 2, GFR 60-89 ml/min ICD Codes: N18.2 - Chronic kidney disease, stage 2 (mild) SNOMED: 171219398 (8) HTN (hypertension) ICD Codes: I10 - Essential (primary) hypertension SNOMED: 92412371 (9) Chronic a-fib ICD Codes: I48.2 - Chronic atrial fibrillation SNOMED: 782413101 Status: stable Assessment/Plan iv abx o2 follow cultures diruesis dc in am Subjective ROS Limited/Unobtainable: No Constitutional: Reports: weakness HEENT: Reports: no symptoms Cardiovascular: Reports: edema Respiratory: Reports: cough, shortness of breath Gastrointestinal/Abdominal: Reports: no symptoms Genitourinary: Reports: no symptoms Neurologic/Psychiatric: Reports: pre-existing deficit Endocrine: Reports: no symptoms Hematologic/Lymphatic: Reports: no symptoms Allergies: Coded Allergies: No Known Allergies (Verified Allergy, Unknown, 09/23/10) All Systems: reviewed and negative except above Subjective a little better. still with sob. no chest pain on iv abx for uti. Objective Last 24 Hour Vital Signs Date Time Temp Pulse Resp B/P (MAP) Pulse Ox O2 Delivery O2 Flow Rate FiO2 05/13/17 04:00 97.3 70 22 135/54 98 Room Air 05/13/17 04:00 58 05/13/17 01:03 Nasal Cannula 05/13/17 01:03 Nasal Cannula 05/13/17 00:00 54 05/13/17 00:00 97.0 62 20 129/49 97 Simple Mask 2.0 28 05/13/17 00:00 97.0 62 20 129/49 97 Nasal Cannula 2.0 05/12/17 20:04 63 16 100 Room Air 05/12/17 20:00 97.7 50 23 121/51 98 Nasal Cannula 2.0 05/12/17 20:00 68 05/12/17 19:28 56 16 99 Room Air 05/12/17 18:00 57 05/12/17 16:02 97.5 81 18 117/53 95 Room Air 05/12/17 13:14 Nasal Cannula 05/12/17 13:14 Nasal Cannula 05/12/17 12:00 48 05/12/17 11:48 97.5 55 18 109/56 100 Room Air 05/12/17 10:34 132/95 Height (Feet): 5 Height (Inches): 5.00 Weight (Pounds): 171 General Appearance: WD/WN, alert Neck: supple Cardiovascular: normal rate, regular rhythm Respiratory/Chest: chest wall non-tender, crackles/rales Abdomen: normal bowel sounds, non tender, soft, no organomegaly Edema: moderate edema Neurologic: mlt II-XII grossly normal, no motor/sensory deficits, alert, oriented x 3, responsive MAXIMILIANO BHATIA May 13, 2017 08:06
[2017-05-13] MEDS ORDERED: NITROFURANTOIN100 MG PO (08:07)
[2017-05-13] MEDS: Docusate 100mg cap ORAL SCH (09:31)
[2017-05-13] MEDS: Losartan 50mg tab ORAL SCH (09:32)
[2017-05-13] MEDS: Eliquis 2.5mg tablet ORAL SCH ×2 (09:32→17:48)
[2017-05-13] MEDS: Glimepiride 4mg tab ORAL SCH (09:33)
[2017-05-13] MEDS: cefTRIAXone 1 GM in D5W 55 ML IVPB SCH (09:34)
[2017-05-13 09:48] LABS: BASOPHILS % (AUTO) 2.3 % (0.0-2.0); EOSINOPHILS % (AUTO) 7.2 % (0.0-3.0); LYMPHOCYTES % (AUTO) 16.2 % (20.0-45.0); MEAN CORPUSCULAR HEMOGLOBIN 27.9 PG (27.0-31.0); MEAN CORPUSCULAR HGB CONC 31.1 G/DL (32.0-36.0); MEAN CORPUSCULAR VOLUME 90 FL (80-99); MEAN PLATELET VOLUME 7.7 FL (6.5-10.1); NEUTROPHILS % (AUTO) 55.4 % (45.0-75.0); PLATELET COUNT 180 K/UL (150-450); RED BLOOD COUNT 4.11 M/UL (4.20-5.40); RED CELL DISTRIBUTION WIDTH 14.6 % (11.6-14.8); WHITE BLOOD COUNT 4.7 K/UL (4.8-10.8)
[2017-05-13 10:10] LABS: ALANINE AMINOTRANSFERASE 11 U/L (3-33); ALBUMIN/GLOBULIN RATIO 1.3 (1.0-2.7); ANION GAP 11 (5-15); ASPARTATE AMINO TRANSFERASE 14 U/L (5-40); CALCIUM 9.8 mg/dL (8.6-10.2); CARBON DIOXIDE 29 mEQ/L (20-30); CHLORIDE 100 mEQ/L (98-107); CREATININE 1.4 mg/dL (0.5-0.9); HEMOLYSIS 2; POTASSIUM 4.1 mEQ/L (3.4-4.9); SODIUM 140 mEQ/L (135-145)
--- NOTE | 2017-05-13 11:15 | Progress Note ---
DATE: 05/12/2017 CARDIOLOGY PROGRESS NOTE SUBJECTIVE: She has less shortness of breath. She still has leg swelling and abdominal distention. She continues to complain of dysuria. OBJECTIVE: VITAL SIGNS: Monitor reveals atrial fibrillation with rate in the high 40s during sleep. No pauses of concern. LUNGS: Diminished breath sounds with bilateral rales. CARDIAC: Irregularly irregular rhythm. Normal S1 and S2. ABDOMEN: Obese and soft. EXTREMITIES: With 2+ dependent edema. LABORATORY DATA: Labs noted. IMPRESSION: 1. Acute on chronic diastolic congestive heart failure. 2. Underlying conduction system disease of the heart. 3. Chronic atrial fibrillation with slow ventricular rate, asymptomatic. 4. Urinary tract infection. 5. Insulin-requiring diabetes mellitus with complications. 6. Hypertensive heart disease. PLAN: 1. Continue IV diuretic therapy. 2. Replace potassium as needed. 3. Presently, no indication for pacemaker, however, this needs to be a consideration if bradyarrhythmias are noted to be of hemodynamic significance. 4. Trend natriuretic peptide assay. 5. Continue cardioembolic prophylaxis with apixaban. 6. Await urine cultures and adjust therapy accordingly. 7. Bronchodilators as needed. Juan Harris M.D. DR: SUN JOB#: [id number] CC:
[2017-05-13 12:00] VITALS: BP 126/62
[2017-05-13] MEDS ORDERED: Milk of Magnesia 30ml Ud ORAL PRN (15:15)
[2017-05-13 16:00] VITALS: BP 123/63
[2017-05-13] MEDS: Montelukast 10mg tablet ORAL SCH (17:20)
[2017-05-13 20:08] VITALS: BP 136/73
--- NOTE | 2017-05-13 23:15 | Progress Note ---
DATE: 05/13/2017 CARDIOLOGY PROGRESS NOTE SUBJECTIVE: The patient has less shortness of breath. No chest pain. She still has some dysuria. OBJECTIVE: VITAL SIGNS: Blood pressure 135/54, pulse 70, and respiratory rate 22. Monitored rhythm, atrial fibrillation, rate in the 50s to 70s. LUNGS: Diminished breath sounds, few rales. HEART: Irregularly irregular rhythm. Normal S1 and S2. ABDOMEN: Soft and obese. EXTREMITIES: With 2+ dependent edema. LABORATORY DATA: White count 4.7 and hemoglobin 11.5. Potassium 4.1, BUN 29, and creatinine 1.4. Urine culture has a gram-negative bacillus with final sensitivities pending. IMPRESSION: Improved. PLAN: Decrease IV diuretic dose to avoid worsening renal failure over the next 24 hours. Adjust antibiotics based on culture results. No current indication for permanent pacemaker. Juan Harris M.D. DR: Essie JOB#: [id number] CC:
[2017-05-14] VITALS: BP 130/50
[2017-05-14] MEDS: DuoNeb 0.5-3(2.5)mg/3ml neb HHN SCH ×2 (01:00→07:25)
[2017-05-14 04:00] VITALS: BP 118/67
[2017-05-14] MEDS: NovoLOG Insulin Flexpen SUBQ SCH ×2 (06:52→11:58)
[2017-05-14 08:00] VITALS: BP 123/53
[2017-05-14] MEDS: Docusate 100mg cap ORAL SCH ×2 (09:00→09:45)
[2017-05-14] MEDS ORDERED: Glimepiride 4mg tab ORAL SCH (09:00)
[2017-05-14] MEDS: Eliquis 2.5mg tablet ORAL SCH (09:45)
[2017-05-14] MEDS: Losartan 50mg tab ORAL SCH (09:46)
[2017-05-14] MEDS: cefTRIAXone 1 GM in D5W 55 ML IVPB SCH (10:22)
[2017-05-14 12:00] VITALS: BP 139/73
[2017-05-14] MEDS ORDERED: NS 275ml ONE (13:02)
[2017-05-14] MEDS ORDERED: Tubing IV Secondary IV ONE (13:02)
--- NOTE | 2017-05-14 22:45 | Discharge Summary ---
DATE OF ADMISSION: 05/11/2017 DATE OF DISCHARGE: 05/14/2017 ADMISSION DIAGNOSES: 1. Congestive heart failure exacerbation. 2. History of atrial fibrillation. 3. Morbid obesity. 4. Hypertension. 5. Diabetes. 6. History of conduction system disease. 7. Bradycardia. 8. Hypothyroidism. DISCHARGE DIAGNOSES: 1. Congestive heart failure exacerbation. 2. History of atrial fibrillation. 3. Morbid obesity. 4. Hypertension. 5. Diabetes. 6. History of conduction system disease. 7. Bradycardia. 8. Hypothyroidism. HOSPITAL COURSE: The patient is a pleasant female with complaints of shortness of breath. She was diagnosed with congestive heart failure exacerbation as well as urinary tract infection. She received IV antibiotic therapy. She was diuresed with intravenous Lasix. Her failure improved with diuresis and urine infection improved with antibiotic therapy. On discharge, she was doing well. The patient will be discharged home. She will be continued on oral diuretic therapy. Dietary medication compliance was stressed, as the patient has a history of non-compliance. The patient was agreeable. DISCHARGE MEDICATIONS: Please see discharge medication list for discharge medications. DIET: Diabetic/cardiac diet. ACTIVITY: Ad-marine. FOLLOWUP: The patient will follow up in one to two weeks in the office. Mac Ivey M.D. DR: ASAEL JOB#: [id number] CC:
== END 2017-05-14 13:03 | disposition home or self-care (01) | DRG 291 ==
LOC: 2E 20:41
DX: I13.0 Hypertensive heart and chronic kidney disease with heart failure and stage 1 through stage 4 chronic kidney disease, or unspecified chronic kidney disease (principal); I50.33 Acute on chronic diastolic (congestive) heart failure; E11.22 Type 2 diabetes mellitus with diabetic chronic kidney disease; E11.40 Type 2 diabetes mellitus with diabetic neuropathy, unspecified; N39.0 Urinary tract infection, site not specified; Z68.43 Body mass index [BMI] 50.0-59.9, adult; J44.9 Chronic obstructive pulmonary disease, unspecified; N18.2 Chronic kidney disease, stage 2 (mild); Z79.4 Long term (current) use of insulin; I48.2 Chronic atrial fibrillation; E66.01 Morbid (severe) obesity due to excess calories; R00.1 Bradycardia, unspecified; E03.9 Hypothyroidism, unspecified; Z87.891 Personal history of nicotine dependence; Z79.02 Long term (current) use of antithrombotics/antiplatelets; I45.9 Conduction disorder, unspecified
CPT/HCPCS: 36415; 71010; 80048; 80053; 81003; 82962; 83735; 83880; 85025; 87086; 87181; 94640; 94664; J1815; J7620; J8499

== ENCOUNTER 2019-12-05 15:32 | Inpatient (IN) | payer MEDICARE, OTHER ==
[~2019-12-05] VITALS: Ht 165.1 cm; Wt 165.1 kg
[~2019-12-05 15:32] MED LIST changes: +NITROFURANTOIN100 MG PO
--- NOTE | 2019-12-05 18:50 | NUR ---
DIRECT ADMIT: Pt arrived via wheelchair at 1830. Admitting Dr. Harris, Dx: COPD Exacerbation. Pt was placed into gown, monitoring analyst placed, VS taken BP 147/83, Pt was placed on Nc @3L with 02 sat 91%, HR 70, temp 97.7 pt is showing shortness of breath and shallow breathing. Belongings were documented. Bed in lowest locked position, bed alarm is on. Contacted Dr Harris for admitting orders.
--- NOTE | 2019-12-05 19:19 | NUR ---
NURSE NOTES: endorsed admission to otto Tinoco RN
--- NOTE | 2019-12-05 19:35 | NUR ---
NURSE NOTES: Received report from Deidre Walker RN. Pt is lethargic, oriented to name and time. Denies pain at this time. Unable to collect pt data at this time r/t lethargy and disorientation. [place] called for admission orders, awaiting orders. Pt is in stable condition, purewick placed, bed bath given. Right lateral forearm 22g placed, saline locked; patent, intact, and asymptomatic. Will continue closely monitoring. Will start plan of care.
[2019-12-05 20:00] VITALS: BP 145/91
[2019-12-05 21:39] LABS: BASOPHILS % (AUTO) 3.3 % (0.0-2.0); EOSINOPHILS % (AUTO) 6.6 % (0.0-3.0); HEMOGLOBIN 12.6 G/DL (12.0-16.0); LYMPHOCYTES % (AUTO) 15.1 % (20.0-45.0); MEAN CORPUSCULAR VOLUME 91 FL (80-99); MONOCYTES % (AUTO) 16.8 % (1.0-10.0); NEUTROPHILS % (AUTO) 58.1 % (45.0-75.0); PLATELET COUNT 148 K/UL (150-450); RED BLOOD COUNT 4.49 M/UL (4.20-5.40); RED CELL DISTRIBUTION WIDTH 16.4 % (11.6-14.8); WHITE BLOOD COUNT 4.2 K/UL (4.8-10.8)
[2019-12-05 22:04] LABS: ALANINE AMINOTRANSFERASE 19 U/L (12-78); ALBUMIN 3.7 G/DL (3.4-5.0); ALBUMIN/GLOBULIN RATIO 0.9 (1.0-2.7); ALKALINE PHOSPHATASE 144 U/L (46-116); ANION GAP 7 mmol/L (5-15); ASPARTATE AMINO TRANSFERASE 23 U/L (15-37); BILIRUBIN,TOTAL 1.2 MG/DL (0.2-1.0); BLOOD UREA NITROGEN 27 mg/dL (7-18); CARBON DIOXIDE 31 MMOL/L (21-32); CHLORIDE 105 MMOL/L (98-107); CREATININE 1.4 MG/DL (0.55-1.30); SODIUM 143 MMOL/L (136-145)
[2019-12-05 22:08] LABS: BILIRUBIN,DIRECT 0.5 MG/DL (0.0-0.3)
[2019-12-05] MEDS: NovoLOG Insulin Flexpen SUBQ SCH (22:27)
[2019-12-06] VITALS: BP 139/89
[2019-12-06 04:00] VITALS: BP 140/90
[2019-12-06] MEDS: Albuterol/Ipratropium 3ml neb HHN SCH ×5 (06:50→23:14)
[2019-12-06] MEDS: NovoLOG Insulin Flexpen SUBQ SCH ×4 (06:51→21:52)
--- NOTE | 2019-12-06 07:36 | NUR ---
NURSE NOTES: Received report from MARIE Lee. Observed pt sleeping, no s/sx of acute distress. Pt breathing and even in 3L NC. Bed on lowest position, call light within reach. Will continue plan of care.
--- NOTE | 2019-12-06 07:39 | NUR ---
HAND-OFF: Report given to Galilea Walker RN. Pt in stable condition.
[2019-12-06 08:00] VITALS: BP 151/74
--- NOTE | 2019-12-06 08:30 | History and Physical Report ---
DATE OF ADMISSION: 12/05/2019 CHIEF COMPLAINT: Shortness of breath and congestive heart failure exacerbation. HISTORY OF PRESENT ILLNESS: The patient is a pleasant 84-year-old female well known to me. She has a history of COPD, congestive heart failure, obesity, diabetes, hypertension, chronic kidney disease. She has a history of conduction system disease status post AICD and pacemaker. 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 According to the patient, she has been compliant with medications and diet although she has a history of noncompliance. Because of her severe edema and shortness of breath, she is now admitted for further evaluation and care. The patient denies any fevers or chills. She has had no cough. Denies any ill contacts. PAST MEDICAL HISTORY: As above. PAST SURGICAL HISTORY: Includes a pacemaker, AICD. CURRENT MEDICATIONS: Reconciled and reviewed. ALLERGIES: None. FAMILY HISTORY: None. SOCIAL HISTORY: Negative for tobacco, ethanol, or drugs. REVIEW OF SYSTEMS: GENERAL: No fevers or chills. HEENT: No headaches or visual changes. CARDIOPULMONARY: No chest pain. Positive shortness of breath and edema. GASTROINTESTINAL: No nausea, vomiting. No diarrhea. GENITOURINARY: No urgency or frequency. MUSCULOSKELETAL: No joint pain or swelling. NEUROLOGIC: No evidence of seizures. PHYSICAL EXAMINATION: VITAL SIGNS: Temperature 97.7, pulse 60, respirations 18, and blood pressure 140/90. GENERAL: The patient is well-developed, no apparent distress. HEART: Regular rate and rhythm. LUNGS: Clear. ABDOMEN: Soft, nontender, nondistended. EXTREMITIES: Significant for 2+ pitting edema. LABORATORY AND DIAGNOSTIC DATA: Labs, sodium 143, potassium is 4, BUN 27, creatinine is 1.4. Total bilirubin 1.2. White count 4, hemoglobin 12. Chest x-ray is currently pending. ASSESSMENT: This is a pleasant female with a history of congestive heart failure, diabetes, hypertension, obesity, chronic kidney disease, paroxysmal atrial fibrillation, AICD admitted with complaints of worsening shortness of breath secondary to CHF exacerbation. PLAN: 1. IV diuretic therapy. 2. Monitor renal function and electrolytes closely. 3. Supplemental oxygen and breathing treatments as needed. 4. Continue Eliquis for stroke prophylaxis. 5. Follow up pending chest x-ray. 6. Cardiology consultation has been obtained. Mac Ivey M.D. DR: Fred JOB#: [id number] CC:
--- NOTE | 2019-12-06 08:39 | NUR ---
NURSE NOTES: Called pharmacy to confirm Levothyroxine order as it is scheduled at 0900. Talked to [place] of pharmacy and stated to give it today as scheduled and he will change the time for tomorrow.
[2019-12-06] MEDS: Eliquis 5mg tablet ORAL SCH ×2 (08:50→17:40)
[2019-12-06] MEDS: Losartan 50mg tab ORAL SCH (08:51)
[2019-12-06] MEDS: metFORMIN 500mg tab ORAL SCH ×2 (08:51→17:40)
[2019-12-06] MEDS: Solu-MEDROL 40mg Inj IVP SCH ×2 (08:51→21:35)
[2019-12-06] MEDS: Spironolactone 25mg tab ORAL SCH (08:51)
--- NOTE | 2019-12-06 09:28 | NUR ---
RADIOLOGY DEPT., CHEST X-RAY DONE.-P.DYE
[2019-12-06 10:29] LABS: APPEARANCE,URINE CLOUDY; BILIRUBIN, URINE NEGATIVE (NEGATIVE); GLUCOSE, URINE (UA) NEGATIVE (NEGATIVE); KETONES,URINE NEGATIVE (NEGATIVE); LEUKOCYTE ESTERASE ,URINE NEGATIVE (NEGATIVE); NITRITE,URINE POSITIVE (NEGATIVE); PH,URINE 8 (4.5-8.0); PROTEIN,URINE 2+ (NEGATIVE); UROBILINOGEN,URINE NORMAL MG/DL (0.0-1.0)
[2019-12-06 10:41] LABS: COLOR,URINE YELLOW
--- NOTE | 2019-12-06 10:53 | Diagnostic Imaging Report ---
Indication: Dyspnea Comparison: 05/12/2017 A single view chest radiograph was obtained. Findings: Pulmonary vascularity is prominent. Heart is enlarged. Bones are slightly osteopenic. There is a pacemaker on the left that is in place. Single lead projects over the right ventricle. IMPRESSION: CHF. Pacemaker
--- NOTE | 2019-12-06 11:55 | NUR ---
CASE MANAGEMENT:REVIEW 84 YR OLD DIRECT ADMIT FROM HOME CC: SOB. CHF EXACERBATION SI: COPD EXACERBATION 97.1 69 20 151/74 98% ON 3L/NC PLT-148 BUN+27 CR+1.4 IS: IV SOLUMEDROL 40MG Q12 IV LASIX QD NORVASC PO QD METFORMIN PO BID ALDACTONE PO QD ELIQUIS PO BID COZAAR PO QD DUONEB HHN Q4HRS RTC URINE CX " DIRECTLY ADMITTED TO TELEMETRY DCP: FROM HOME
[2019-12-06 12:00] VITALS: BP 144/74
[2019-12-06 16:00] VITALS: BP 143/67
[2019-12-06] MEDS ORDERED: ELIQUIS5 MG PO (18:20)
--- NOTE | 2019-12-06 19:30 | NUR ---
HAND-OFF: Report given to MARIE Toribio. Pt in stable condition, endorsed plan of care.
[2019-12-06 20:00] VITALS: BP 150/59
--- NOTE | 2019-12-06 20:00 | NUR ---
NURSE NOTES: RECEIVED PATIENT LYING IN BED, AWAKE, ALERT/ORIENTED X4, DENIES PAIN. IV INTACT TO RIGHT FOREARM/GAUGE 22, FLUSHING WELL, DENIES PAIN. NO SIGNS AND SYMPTOMS OF ACUTE CARDIO RESPIRATORY DISTRESS/SHORTNESS OF BREATH, TOLERATING 02 3L VIA NASAL CANULA, DENIES CHEST PAIN, PACEMAKER LEFT CHEST WALL. ABDOMEN OBESE, BOWEL SOUNDS AUDIBLE, N/V/D, LAST BOWEL MOVEMENT 12/05, PURE WICK INTACT. MULTIPLE DIGITS ON BILATERAL HANDS CONTRACTED, LEFT HAND MORE PRONOUNCED. BILATERAL LOWER EXTREMITIES NOTED WITH TEXTURE CHANGE/BUMPY/INTACT. SIDE RAILS UP X3/BED IN LOWEST POSITION FOR SAFETY. ENCOURAGED PATIENT TO UTILIZE CALL LIGHT FOR ASSISTANCE, VERBALIZED UNDERSTANDING. CONTINUE WITH CURRENT PLAN OF CARE. NAD.
[2019-12-07] VITALS (7 sets, daily range): BP systolic 121–142; BP diastolic 65–83
[2019-12-07] MEDS: Albuterol/Ipratropium 3ml neb HHN SCH ×6 (03:25→23:32)
--- NOTE | 2019-12-07 06:21 | NUR ---
NURSE NOTES: BLOOD GLUCOSE LEVEL MONITORED VIA GLUCOMETER WITH RESULT 160MG/DL, ASYMPTOMATIC, ADM. SLIDING SCALE INSULIN ORDERED, TOLERATED WELL, NO ADVERSE REACTION NOTED AFTER 15 MINUTES. NAD.
[2019-12-07] MEDS: NovoLOG Insulin Flexpen SUBQ SCH ×4 (06:27→21:00)
--- NOTE | 2019-12-07 07:31 | NUR ---
HAND-OFF: Report given to Kayleigh YAP
--- NOTE | 2019-12-07 07:39 | NUR ---
NURSE NOTES: Received report from MARIE Toribio. Observed pt sleeping, breathing even and unlabored in 3L NC. No s/sx of acute distress. IV site on R FA 22g patent and asymptomatic. Bed on lowest position, call light within reach. Will continue plan of care.
[2019-12-07] MEDS: Eliquis 5mg tablet ORAL SCH ×2 (09:00→18:17)
[2019-12-07] MEDS: Spironolactone 25mg tab ORAL SCH (09:00)
[2019-12-07] MEDS: Solu-MEDROL 40mg Inj IVP SCH ×3 (09:00→21:58)
[2019-12-07] MEDS: metFORMIN 500mg tab ORAL SCH ×2 (09:00→18:17)
[2019-12-07] MEDS: Losartan 50mg tab ORAL SCH (09:00)
--- NOTE | 2019-12-07 09:22 | General Progress Note ---
Assessment/Plan Problem List: (1) Acute bronchospasm ICD Codes: J98.01 - Acute bronchospasm SNOMED: 41036170457533 (2) Non-insulin dependent diabetes mellitus treated with insulin ICD Codes: E11.9 - Type 2 diabetes mellitus without complications; Z79.4 - MCFP (current) use of insulin SNOMED: 45323670, 828407501 (3) COPD (chronic obstructive pulmonary disease) ICD Codes: J44.9 - Chronic obstructive pulmonary disease, unspecified SNOMED: 89018734 (4) Congestive heart failure ICD Codes: I50.9 - Heart failure, unspecified SNOMED: 43396644 (5) Diabetes ICD Codes: E11.9 - Type 2 diabetes mellitus without complications SNOMED: 52493324 (6) HTN (hypertension) ICD Codes: I10 - Essential (primary) hypertension SNOMED: 86858806 (7) CKD (chronic kidney disease) stage 2, GFR 60-89 ml/min ICD Codes: N18.2 - Chronic kidney disease, stage 2 (mild) SNOMED: 394820949 (8) Chronic a-fib ICD Codes: I48.2 - Chronic atrial fibrillation SNOMED: 446059535 Status: stable, progressing Assessment/Plan: iv lasix resp care o2 monitor renal fxn and lytes elevate legs monitor cxr eliquis for stroke prophylaxis Subjective ROS Limited/Unobtainable: No Constitutional: Reports: malaise, weakness HEENT: Reports: no symptoms Cardiovascular: Reports: edema Respiratory: Reports: shortness of breath Gastrointestinal/Abdominal: Reports: no symptoms Genitourinary: Reports: no symptoms Neurologic/Psychiatric: Reports: no symptoms Endocrine: Reports: no symptoms Hematologic/Lymphatic: Reports: no symptoms Allergies: Coded Allergies: No Known Allergies (Verified Allergy, Unknown, 09/23/10) All Systems: reviewed and negative except above Subjective c/o cough and sob. notes sob is less than yesterday. no fever or chills. no ill contacts. CXR shows chf. Objective Last 24 Hour Vital Signs Date Time Temp Pulse Resp B/P (MAP) Pulse Ox O2 Delivery O2 Flow Rate FiO2 12/07/19 09:00 131/83 12/07/19 09:00 65 131/83 12/07/19 08:00 98.1 65 20 131/83 (99) 99 3/27/20 07:24 70 18 100 Nasal Cannula 2.0 28 72 16 97 12/07/19 07:14 97 Nasal Cannula 2.0 28 12/07/19 04:00 71 12/07/19 04:00 3.0 12/07/19 04:00 97.9 61 20 129/82 (98) 100 12/07/19 00:00 70 12/07/19 00:00 98.2 63 20 124/79 (94) 100 12/07/19 00:00 3.0 12/06/19 23:14 76 18 100 Nasal Cannula 2.0 28 73 18 99 12/06/19 21:58 3.0 12/06/19 21:00 Nasal Cannula 3.0 12/06/19 20:00 97.6 71 20 150/59 (89) 99 12/06/19 20:00 74 12/06/19 19:54 98 Nasal Cannula 2.0 28 12/06/19 19:52 74 18 100 Nasal Cannula 2.0 28 70 18 98 12/06/19 16:00 3.0 12/06/19 16:00 97.8 72 20 143/67 (92) 96 12/06/19 15:53 70 12/06/19 14:38 68 18 100 Nasal Cannula 2.0 28 65 18 99 12/06/19 12:00 3.0 12/06/19 12:00 97.5 70 20 144/74 (97) 95 12/06/19 11:46 73 12/06/19 11:00 72 18 99 Nasal Cannula 2.0 28 69 16 98 Intake and Output 12/06/19 12/07/19 19:00 07:00 Intake Total 400 ml 360 ml Balance 400 ml 360 ml Intake Oral 400 ml 360 ml # Voids 3 2 Laboratory Tests 12/06/19 10:10: Urine Color Yellow, Urine Appearance Cloudy, Urine pH 8, Urine Specific [place] 1.010, Urine Protein 2+H, Urine Glucose (UA) Negative, Urine Ketones Negative, Urine Blood Negative, Urine Nitrite PositiveH, Urine Bilirubin Negative, Urine Urobilinogen Normal, Urine Leukocyte Esterase Negative, Urine RBC 0-2, Urine WBC 0-2, Urine Squamous Epithelial Cells Few, Urine Triple Phosphate Crystals ManyH, Urine Bacteria ManyH Height (Feet): 5 Height (Inches): 5.00 Weight (Pounds): 364 General Appearance: WD/WN, alert Neck: supple Cardiovascular: regular rhythm Respiratory/Chest: lungs clear, normal breath sounds Abdomen: normal bowel sounds, non tender, soft, no organomegaly, no mass Edema: mild edema Neurologic: drainage inspector II-XII grossly normal, alert, oriented x 3, responsive Mac Ivey MD Dec 07, 2019 09:22
--- NOTE | 2019-12-07 10:23 | NUR ---
CASE MANAGEMENT:REVIEW 12/07/19 SI: ACUTE BRONCHOSPASM COPD. CHF. CKD LESS SOB TODAY 98.1 65 20 131/83 99% ON 2L/NC IS: IV SOLUMEDROL Q12 SYNTHROID PO QAM NORVASC PO QD METFORMIN PO BID ALDACTONE PO QD ELIQUIS PO BID COZAAR PO QD DUONEB HHN Q4HRS : TELEMETRY STATUS DCP: FROM HOME PLAN: IV LASIX ELEVATE LEGS URINE CULTURE
[2019-12-07 10:53] LABS: BASOPHILS % (AUTO) 0.9 % (0.0-2.0); HEMATOCRIT 42.8 % (37.0-47.0); HEMOGLOBIN 13.6 G/DL (12.0-16.0); LYMPHOCYTES % (AUTO) 11.6 % (20.0-45.0); MEAN CORPUSCULAR VOLUME 89 FL (80-99); NEUTROPHILS % (AUTO) 80.5 % (45.0-75.0); PLATELET COUNT 131 K/UL (150-450); RED BLOOD COUNT 4.78 M/UL (4.20-5.40); RED CELL DISTRIBUTION WIDTH 15.4 % (11.6-14.8); WHITE BLOOD COUNT 4.5 K/UL (4.8-10.8)
[2019-12-07 11:17] LABS: ALANINE AMINOTRANSFERASE 18 U/L (12-78); ALBUMIN 3.3 G/DL (3.4-5.0); ALBUMIN/GLOBULIN RATIO 0.8 (1.0-2.7); ALKALINE PHOSPHATASE 134 U/L (46-116); ANION GAP 8 mmol/L (5-15); ASPARTATE AMINO TRANSFERASE 22 U/L (15-37); BILIRUBIN,TOTAL 0.9 MG/DL (0.2-1.0); BLOOD UREA NITROGEN 34 mg/dL (7-18); CALCIUM 9.6 MG/DL (8.5-10.1); CARBON DIOXIDE 26 MMOL/L (21-32); CHLORIDE 106 MMOL/L (98-107); CREATININE 1.6 MG/DL (0.55-1.30); POTASSIUM 4.7 MMOL/L (3.5-5.1); SODIUM 140 MMOL/L (136-145)
--- NOTE | 2019-12-07 19:30 | NUR ---
NURSE NOTES: Receieved report from Galilea Walker RN. Pt is stable condition, A x O to name and place, denies any pain at this time. Bed in lowest position, call light within reach, bed alarm armed. Will continue plan of care and close monitoring.
--- NOTE | 2019-12-07 19:49 | NUR ---
HAND-OFF: Report given to MARIE Lee. Pt in stable condition, endorsed plan of care.
--- NOTE | 2019-12-07 22:30 | NUR ---
NURSE NOTES: Loni made aware of pt refusal of solu-medrol. Pt requested cough med for non-productive cough: ordered Robitussin DM ml Q 4 hr PRN cough. Order read back and entered. Will continue to monitor closely.
[2019-12-07] MEDS ORDERED: Guaifenesin/DM 10ml syrup ORAL PRN (22:45)
[2019-12-08] VITALS: BP 103/59
--- NOTE | 2019-12-08 00:16 | CDS Physician Query ---
Clarification is required for compliance, coding accuracy, and to reflect severity of illness for this patient Dear Dr. Ivey Date: 12/08/19 CDS Name: Alexandra Ryan "CHF exacerbation" is documented in H&P. Patient has a pacemaker placed. On admission: BNP: 46241 Rx: IV Lasix CXR: Pulmonary vascularity is prominent. Heart enlarged. Please clarify the type of CHF: [ ] Systolic [ x ] Diastolic [ ] Systolic & Diastolic (Combined) Present on Admission: [ x ] Yes [ ] No [ ] Clinically Undetermined Physician signature Date Please also document in your Progress Notes and/or Discharge Summary and indicate if the condition was present on admission. LISSETH
--- NOTE | 2019-12-08 02:45 | Progress Note ---
DATE: 12/06/2019 CARDIOLOGY PROGRESS NOTE SUBJECTIVE: The patient has less shortness of breath, but it is still not at her baseline. She is short-winded just moving out of the bed. She notes less wheezing. OBJECTIVE: VITAL SIGNS: Blood pressure 150/59, heart rate 74, and respiratory rate 20. Monitored rhythm, paced. GENERAL: Moderately obese . LUNGS: Some paradoxical respirations noted. Diminished breath sounds. Scattered rales. Few wheezes. CARDIAC: Regular rhythm and rate. Normal S1 and paradoxically split S2. ABDOMEN: Obese. EXTREMITIES: There is 2+ to 3+ dependent edema. LABORATORY DATA: Labs from December 05, 2019 were reviewed. Urinalysis reveals few white cells and many bacteria. No change in review of systems from my admission note. IMPRESSION: 1. Acute on chronic diastolic and systolic congestive heart failure. 2. COPD exacerbation. 3. Acute bronchospasm. 4. Possible urinary tract infection. 5. Hypertensive cardiomyopathy. 6. Microvascular coronary artery disease. 7. Permanent pacemaker. 8. Paroxysmal atrial fibrillation. 9. Nonsustained ventricular ectopy. PLAN: 1. Steroids with taper. 2. Diuresis with caution. 3. Monitor volume status and cardiorenal function. 4. Full anticoagulation for cardioembolic prophylaxis. 5. We will review chest radiograph and continue to follow. Juan Harris M.D. DR: AGA JOB#: [id number] CC:
[2019-12-08] MEDS: Albuterol/Ipratropium 3ml neb HHN SCH ×6 (03:00→22:48)
--- NOTE | 2019-12-08 03:14 | Consultation ---
DATE OF CONSULTATION: 12/05/2019 CARDIOLOGY CONSULTATION CONSULTING PHYSICIAN: Juan Harris M.D. REQUESTING PHYSICIAN: Mac Ivey M.D. REASON FOR CONSULTATION: Shortness of breath. HISTORY OF PRESENT ILLNESS: This is an 84-year-old female with a long-standing history of hypertensive cardiomyopathy, cardiac arrhythmias, and COPD. She was seen in my office yesterday. She was noted to be increasingly short of breath. She was wheezing and started on steroids. She failed to improve and hospitalization is now initiated. The patient has increasing leg swelling. No chest pain, but has shortness of breath. She also notes bloating of her abdomen and some dysuria. PAST MEDICAL HISTORY: COPD, type 2 diabetes mellitus, permanent pacemaker, hypertensive heart disease, microvascular coronary artery disease, peripheral artery disease, chronic kidney disease, diastolic and systolic congestive heart failure, obesity, diabetic neuropathy, degenerative disk disease, and hypothyroidism. ALLERGIES: None. MEDICATIONS: Reviewed and reconciled. FAMILY HISTORY: Noncontributory. SOCIAL HISTORY: There is a smoking history. No alcohol or substance abuse. She lives at home with family members. REVIEW OF SYSTEMS: No history of retinopathy. No fevers or chills. No cough or sputum production. No chest pain. Negative myocardial perfusion scan for flow-limiting disease in the past. Echocardiogram most recently in the last three months revealed an ejection fraction of about 40% to 45% with mild pulmonary hypertension and degenerative valve disease. She has paroxysmal atrial fibrillation. She is on cardioembolic prophylaxis. She had a pacemaker interrogation approximately less than six months ago. There is no history of seizure. She has had a distant stroke. She does have peripheral artery disease and chronic venous insufficiency. Her diabetes is managed with oral therapy. Her creatinine has been well enough to permit continuation of metformin in the past. She is on thyroid replacement. The patient has noted some dysuria and frequency. She has relatively frequent benign urinary tract infections in the past. PHYSICAL EXAMINATION: VITAL SIGNS: Blood pressure 152/80, heart rate 60, respiratory rate 18, and afebrile. HEENT: Conjunctivae are pink. Oropharynx is clear. NECK: Obese. Accessary muscle use is noted. LUNGS: Expiratory wheezes and few rales. BREASTS: Pendulous. ABDOMEN: With paradoxical motion. CARDIAC: Distant S1 and S2. Irregularly irregular rhythm. EXTREMITIES: With 2 to 3+ pitting edema and stasis changes. NEUROLOGIC: Sensory deficits of the feet. Otherwise nonfocal. LABORATORY AND DIAGNOSTIC DATA: EKG reveals atrial fibrillation with ventricular pacing by demand. Labs are pending. IMPRESSION: 1. Acute bronchospasm. 2. COPD exacerbation. 3. Acute on chronic systolic and diastolic congestive heart failure. 4. Hypertensive cardiomyopathy. 5. Type 2 diabetes mellitus. 6. Permanent pacemaker. 7. Paroxysmal atrial fibrillation, rate controlled. 8. Chronic kidney disease, possibly urinary tract infection. PLAN: 1. Inhaled bronchodilators. 2. Intravenous steroids. 3. Nasal oxygen. 4. IV diuresis. 5. Titrate antihypertensives. 6. Continue apixaban for cardioembolic prophylaxis. 7. Check thyroid panel. 8. Monitor electrolytes and replace accordingly. 9. Continue cardiac monitoring. Juan Harris M.D. DR: AGA JOB#: [id number] CC:
--- NOTE | 2019-12-08 03:14 | Progress Note ---
DATE: 12/07/2019 CARDIOLOGY PROGRESS NOTE SUBJECTIVE: Still with cough and shortness of breath, although slightly improved. Leg swelling persists. Chest x-ray reviewed. Pulmonary venous congestion and congestive heart failure noted. PHYSICAL EXAMINATION: VITAL SIGNS: Blood pressure 131/83, heart rate 65, and respiratory rate 20. Monitored rhythm, paced. NECK: Obese. LUNGS: With diminished breath sounds. Few rales. CARDIAC: rhythm and rate. Normal S1 and paradoxically split S2. ABDOMEN: Soft and obese. Some paradoxical motion. EXTREMITIES: With 2 to 3+ dependent edema. LABORATORY DATA: White count 4.5 and hemoglobin 13.6. Sodium 140, potassium 4.7, bicarb 26, BUN 34, creatinine 1.6, glucose 209, and magnesium 1.7. Pro-natriuretic peptide is 11,500. IMPRESSION: 1. Acute on chronic systolic and diastolic congestive heart failure. 2. Paroxysmal atrial fibrillation. 3. Permanent pacemaker. 4. Hypertensive cardiomyopathy. 5. Hypomagnesemia. 6. Acute bronchospasm, improved. 7. COPD exacerbation. 8. Type 2 diabetes mellitus. 9. Acute on chronic kidney injury. 10. Hypothyroidism, on replacement therapy. PLAN: 1. Continue IV diuresis, advancing the dose. 2. IV magnesium. 3. Monitor potassium, replace as needed. 4. Titrate antihypertensives. 5. Taper steroids as able. 6. Insulin coverage by sliding scale. 7. Watch for rising creatinine with use of metformin. 8. Continue full anticoagulation with apixaban. 9. Continue cardiac monitoring. Juan Harris M.D. DR: AGA JOB#: [id number] CC:
[2019-12-08 04:00] VITALS: BP 111/66
[2019-12-08] MEDS: NovoLOG Insulin Flexpen SUBQ SCH ×4 (06:20→21:10)
--- NOTE | 2019-12-08 07:45 | NUR ---
HAND-OFF: Report given to Waleska Pisano RN. Pt is in stable condition.
--- NOTE | 2019-12-08 07:48 | NUR ---
NURSE NOTES: Nurse report given by MARIE Dominguez. Patient's awake and eating breakfast in bed, high mujica position, eyes open spontaneously, breathing regular and unlabored, AO x 2,no s/s of distress or SOB, complains of stomach discomfort, pain 2/10. IV is saline locked, patent and asymptomatic. Bed low and locked, call light within reach, side rails x 3, bed alarm is armed, animal science instructor is on. Will continue to monitor.
[2019-12-08 08:00] VITALS: BP 112/67
[2019-12-08] MEDS: Losartan 50mg tab ORAL SCH (08:49)
[2019-12-08] MEDS: Solu-MEDROL 40mg Inj IVP SCH ×2 (08:50→20:57)
[2019-12-08] MEDS: metFORMIN 500mg tab ORAL SCH ×2 (08:50→18:00)
[2019-12-08] MEDS: Spironolactone 25mg tab ORAL SCH (08:50)
[2019-12-08] MEDS: Eliquis 5mg tablet ORAL SCH ×2 (08:50→18:00)
[2019-12-08 12:00] VITALS: BP 143/61
--- NOTE | 2019-12-08 12:00 | NUR ---
NURSE NOTES: Patient refused lab drawn. Explained to patient the important to draw blood and see the lab result in order to give her medication. Patient still refused. Will inform .
--- NOTE | 2019-12-08 12:11 | General Progress Note ---
Assessment/Plan Problem List: (1) Acute bronchospasm ICD Codes: J98.01 - Acute bronchospasm SNOMED: 32215383396293 (2) Non-insulin dependent diabetes mellitus treated with insulin ICD Codes: E11.9 - Type 2 diabetes mellitus without complications; Z79.4 - longterm (current) use of insulin SNOMED: 08890773, 580338849 (3) COPD (chronic obstructive pulmonary disease) ICD Codes: J44.9 - Chronic obstructive pulmonary disease, unspecified SNOMED: 65319035 (4) Congestive heart failure ICD Codes: I50.9 - Heart failure, unspecified SNOMED: 05987314 (5) Diabetes ICD Codes: E11.9 - Type 2 diabetes mellitus without complications SNOMED: 42754968 (6) HTN (hypertension) ICD Codes: I10 - Essential (primary) hypertension SNOMED: 91324287 (7) CKD (chronic kidney disease) stage 2, GFR 60-89 ml/min ICD Codes: N18.2 - Chronic kidney disease, stage 2 (mild) SNOMED: 030790435 (8) Chronic a-fib ICD Codes: I48.2 - Chronic atrial fibrillation SNOMED: 933634994 Status: stable, progressing Assessment/Plan: Continue IV diuretics per cardiology recommendations. Monitor renal function and electrolytes. Continue Eliquis for stroke prophylaxis. Physical therapy evaluation. Wean oxygen. Bowel regimen. Discharge planning. We will follow- up therapy recommendations. Subjective ROS Limited/Unobtainable: No Constitutional: Reports: malaise, weakness HEENT: Reports: no symptoms Cardiovascular: Reports: edema Respiratory: Reports: shortness of breath Gastrointestinal/Abdominal: Reports: no symptoms Genitourinary: Reports: no symptoms Neurologic/Psychiatric: Reports: no symptoms Endocrine: Reports: no symptoms Hematologic/Lymphatic: Reports: no symptoms Allergies: Coded Allergies: No Known Allergies (Verified Allergy, Unknown, 09/23/10) All Systems: reviewed and negative except above Subjective Patient feels improved. She denies any chest pain. Shortness of breath is less. Edema is improving.She is off oxygen. Objective Last 24 Hour Vital Signs Date Time Temp Pulse Resp B/P (MAP) Pulse Ox O2 Delivery O2 Flow Rate FiO2 12/08/19 11:06 75 20 97 Nasal Cannula 2.0 28 81 20 92 12/08/19 09:00 Nasal Cannula 3.0 12/08/19 08:50 72 112/67 12/08/19 08:49 112/67 12/08/19 08:00 72 12/08/19 08:00 98.0 72 20 112/67 (82) 95 12/08/19 07:00 95 Room Air 12/08/19 04:00 73 12/08/19 04:00 98.0 75 18 111/66 (81) 98 12/08/19 00:00 97.5 81 18 103/59 (74) 97 12/08/19 00:00 72 12/07/19 23:34 72 16 99 Room Air 21 69 16 98 12/07/19 21:00 Nasal Cannula 3.0 12/07/19 20:25 80 16 97 Room Air 21 100 16 97 12/07/19 20:00 97.5 71 18 121/66 (84) 98 12/07/19 20:00 71 12/07/19 19:39 97 Nasal Cannula 2.0 28 12/07/19 18:00 98.5 76 20 138/70 (92) 98 12/07/19 16:00 98.5 76 20 138/70 (92) 98 12/07/19 15:16 70 12/07/19 15:10 80 16 97 Room Air 21 74 16 94 Intake and Output 12/07/19 12/08/19 19:00 07:00 Intake Total 600 ml 800 ml Balance 600 ml 800 ml Intake Oral 600 ml 800 ml # Voids 2 2 Height (Feet): 5 Height (Inches): 5.00 Weight (Pounds): 364 General Appearance: WD/WN, alert Neck: supple Cardiovascular: normal rate Respiratory/Chest: lungs clear, normal breath sounds Abdomen: normal bowel sounds, non tender, soft, no organomegaly, no mass Edema: mild edema Neurologic: provider education specialist II-XII grossly normal, alert, oriented x 3 Mac Ivey MD Dec 08, 2019 12:11
[2019-12-08 16:00] VITALS: BP 130/59
--- NOTE | 2019-12-08 16:15 | NUR ---
NURSE NOTES: Patient is agitated and anxious, wants to move to the wheelchair, however she's very weak and unsteady. Nurse explain to the patient it is very unsafe for the patient to move to wheelchair since she can't even sit up straight and keeps falling forward. Patient still adamant about moving to the wheelchair. Called and spoke to Dr. Ivey regarding the situation. MD ordered Ativan 1mg IV q4hr PRN. Order acknowledged and carried out. Patient wants to leave AMA, tried to reach Granddaughter but unable to answer and voicemail is full. Talk therapy given, offer patient food, patient's able to calm down abit and agree to eat food in bed first. Will continue to monitor.
[2019-12-08] MEDS ORDERED: LORazepam Inj 2mg/ml 1ml IV PRN (16:30)
--- NOTE | 2019-12-08 17:36 | NUR ---
NURSE NOTES: Patient's still adamant about wanting to leave AMA. Spoke to granddaughter, Cindy, she aware and informed that the patient needs to stay in the hospital to get better. Informed granddaughter to speak to the patient herself and patient still wants to go home. MD aware and granddaughter refused to come get the patient to leave AMA.
--- NOTE | 2019-12-08 19:14 | NUR ---
HAND-OFF: Report given to MARIE Dominguez. Patient's stable, plan of care endorsed.
--- NOTE | 2019-12-08 19:15 | NUR ---
NURSE NOTES: Received report from Waleska Pisano RN. Pt is in stable condition.
[2019-12-08 20:00] VITALS: BP 131/70
[2019-12-09] VITALS: BP 136/68
[2019-12-09] MEDS ORDERED: cefTRIAXone 1 GM in D5W 55 ML IVPB SCH (01:00)
--- NOTE | 2019-12-09 02:30 | Progress Note ---
DATE: 12/08/2019 SUBJECTIVE: The patient is not at baseline, but feels improved with regard to shortness of breath. No chest pain. Leg swelling is persisting, but much improved. She is off oxygen. She still has dysuria. Her urine culture is positive for Citrobacter. PHYSICAL EXAMINATION: VITAL SIGNS: Blood pressure 112/67, heart rate 72, respiratory rate 20, and oxygen saturation on 2 liters is 92% to 97%. Monitored rhythm, atrial fibrillation. LUNGS: Diminished breath sounds. No wheezing. CARDIAC: Irregularly irregular rhythm. Normal S1 and paradoxically split S2. ABDOMEN: Soft. EXTREMITIES: 1 to 2+ dependent edema. LABORATORY DATA: No new labs. IMPRESSION: 1. Acute on chronic diastolic and systolic congestive heart failure. 2. Paroxysmal atrial fibrillation, rate controlled. 3. Permanent pacemaker with stable function. 4. Acute bronchospasm, resolved. 5. COPD exacerbation, improved. 6. Citrobacter urinary tract infection. 7. Type 2 diabetes mellitus with complications. PLAN: 1. IV antimicrobials. 2. Steroid taper. 3. Adjust diuretics. 4. Monitor renal parameters. 5. Full anticoagulation with apixaban. Juan Harris M.D. DR: AGA JOB#: [id number] CC:
[2019-12-09] MEDS: Albuterol/Ipratropium 3ml neb HHN SCH ×3 (03:00→10:36)
--- NOTE | 2019-12-09 03:25 | NUR ---
HAND-OFF: Report given to MARIE Schneider. Pt in stable condition.
--- NOTE | 2019-12-09 03:26 | NUR ---
NURSE NOTES: Got report from Kasandra SALAZAR. Pt in stable condition. Continue to monitor. Addendum: 12/09/19 at 0707 by Brian Cooper RN Pt refusing manager cardiac. No s/s of distress or discomfort noted. Continue to monitor.
[2019-12-09] MEDS: NovoLOG Insulin Flexpen SUBQ SCH ×2 (06:30→11:30)
[2019-12-09 07:45] VITALS: BP 128/62
[2019-12-09 07:45] LABS: BASOPHILS % (AUTO) 1.9 % (0.0-2.0); EOSINOPHILS % (AUTO) 0.2 % (0.0-3.0); HEMATOCRIT 35.3 % (37.0-47.0); HEMOGLOBIN 11.4 G/DL (12.0-16.0); MEAN CORPUSCULAR VOLUME 88 FL (80-99); MONOCYTES % (AUTO) 12.8 % (1.0-10.0); NEUTROPHILS % (AUTO) 75.2 % (45.0-75.0); PLATELET COUNT 148 K/UL (150-450); RED BLOOD COUNT 4.01 M/UL (4.20-5.40); RED CELL DISTRIBUTION WIDTH 14.8 % (11.6-14.8); WHITE BLOOD COUNT 5.2 K/UL (4.8-10.8)
--- NOTE | 2019-12-09 07:47 | NUR ---
HAND-OFF: Report given to David SALAZAR.
--- NOTE | 2019-12-09 08:00 | NUR ---
NURSE NOTES: Pt awake/alert in bed, breathing easily on room air, denies SOB and denies pain at this time. Vital signs stable, pt refusing monitor at this time. IV access right forearm, flushed with 10 ml NS and locked. Bed left in low position, side rails up x 2 and call light left near pt's hand.
[2019-12-09] MEDS ORDERED: COZAAR50 MG ORAL (08:19)
[2019-12-09 08:25] LABS: ALANINE AMINOTRANSFERASE 20 U/L (12-78); ALBUMIN 3.1 G/DL (3.4-5.0); ALBUMIN/GLOBULIN RATIO 0.9 (1.0-2.7); ALKALINE PHOSPHATASE 105 U/L (46-116); ANION GAP 9 mmol/L (5-15); ASPARTATE AMINO TRANSFERASE 19 U/L (15-37); BILIRUBIN,TOTAL 0.7 MG/DL (0.2-1.0); BLOOD UREA NITROGEN 47 mg/dL (7-18); CARBON DIOXIDE 28 MMOL/L (21-32); CHLORIDE 102 MMOL/L (98-107); CREATININE 2.1 MG/DL (0.55-1.30); POTASSIUM 4.8 MMOL/L (3.5-5.1); SODIUM 138 MMOL/L (136-145)
[2019-12-09 09:00] VITALS: BP 128/62
[2019-12-09] MEDS: Eliquis 5mg tablet ORAL SCH (09:00)
[2019-12-09] MEDS: Spironolactone 25mg tab ORAL SCH (09:00)
[2019-12-09] MEDS: metFORMIN 500mg tab ORAL SCH (09:00)
[2019-12-09] MEDS: Losartan 50mg tab ORAL SCH (09:00)
[2019-12-09] MEDS ORDERED: Solu-MEDROL 40mg Inj IVP SCH (09:00)
--- NOTE | 2019-12-09 14:30 | NUR ---
NURSE NOTES: Pt breathing easily on room air, as [facility] prepared to transport pt home. IV access removed as well as ID band. Pt instructed to stop taking lasix until she calls Dr Ivey on Tuesday. Lasix was crossed off of the medication list sent home with pt. Pt also received prescription for ABX and BP medication. Pt signed belongings list, discharge summary and discharge checklist.
[2019-12-09] MEDS ORDERED: NS 275ml ONE (15:10)
[2019-12-09] MEDS ORDERED: Eliquis 2.5mg tablet ORAL SCH (18:00)
--- NOTE | 2019-12-09 19:00 | Progress Note ---
DATE: 12/09/2019 CARDIOLOGY PROGRESS NOTE SUBJECTIVE: The patient feels much better. Less congested. No shortness of breath. Steroids have been tapered. PHYSICAL EXAMINATION: VITAL SIGNS: Blood pressure 128/62, heart rate 88, respirations 18, oxygen saturations are 99% on 2 liters nasal cannula. LUNGS: Bilateral breath sounds. No wheezing. Irregularly irregular rhythm. Normal S1. Paradoxically split S2. ABDOMEN: Soft. EXTREMITIES: 1+ dependent edema. LABORATORY DATA: White count 5, hemoglobin 11.4. Potassium 4.8, BUN 47, creatinine 2.1. Pro-natriuretic peptide 7300. IMPRESSION: 1. COPD exacerbation, improved. 2. Acute bronchospasm, resolved. 3. Acute on chronic renal failure due to diuresis . Steroids are decreased as well. 4. Acute on chronic systolic and diastolic congestive heart failure, recovered. 5. Permanent pacemaker with stable function. 6. Paroxysmal atrial fibrillation, rate controlled. 7. Hypertensive heart disease with controlled blood pressure. PLAN: 1. Taper off steroids as an outpatient. 2. Return to maintenance diuretic dosing at home. 3. Monitor cardiorenal function and laboratory studies as an outpatient. 4. Dietary restriction stressed. Juan Harris M.D. DR: BENY JOB#: [id number] CC:
--- NOTE | 2019-12-09 19:30 | Discharge Summary ---
DATE OF ADMISSION: 12/05/2019 DATE OF DISCHARGE: 12/09/2019 ADMISSION DIAGNOSES: 1. Congestive heart failure exacerbation. 2. Chronic obstructive pulmonary disease exacerbation. 3. Respiratory insufficiency. 4. Diabetes. 5. Hypertension. 6. Atrial fibrillation. 7. History of automatic implantable cardioverter defibrillator pacemaker. DISCHARGE DIAGNOSES: 1. Congestive heart failure exacerbation. 2. Chronic obstructive pulmonary disease exacerbation. 3. Respiratory insufficiency. 4. Diabetes. 5. Hypertension. 6. Atrial fibrillation. 7. History of automatic implantable cardioverter defibrillator pacemaker. HOSPITAL COURSE: The patient was admitted with complaints of shortness of breath secondary to CHF and COPD exacerbation. She was diuresed. She received intravenous steroids. She did have a bump in her creatinine, but she responded well to medical therapy. On discharge, her shortness of breath had improved back to baseline. She will be discharged home. She has currently been asked to hold her oral diuretic therapy because of the elevated creatinine. She has been asked to return to the office in a couple of days to recheck her creatinine and to reassess her diuretic needs. The patient was agreeable to this plan of care. DISCHARGE MEDICATIONS: Please see discharge medication list for discharge medications. DIET: Cardiac diabetic diet. ACTIVITIES: Ad-marine. FOLLOWUP: The patient will followup in one to two days in the office. Mac Ivey M.D. DR: Henny JOB#: [id number] CC:
== END 2019-12-09 15:11 | disposition home or self-care (01) | DRG 291 ==
LOC: 2E 18:00
DX: I13.0 Hypertensive heart and chronic kidney disease with heart failure and stage 1 through stage 4 chronic kidney disease, or unspecified chronic kidney disease (principal); I50.43 Acute on chronic combined systolic (congestive) and diastolic (congestive) heart failure; N39.0 Urinary tract infection, site not specified; I48.20 Chronic atrial fibrillation, unspecified; J44.1 Chronic obstructive pulmonary disease with (acute) exacerbation; N17.9 Acute kidney failure, unspecified; Z68.44 Body mass index [BMI] 60.0-69.9, adult; E11.22 Type 2 diabetes mellitus with diabetic chronic kidney disease; E11.51 Type 2 diabetes mellitus with diabetic peripheral angiopathy without gangrene; E11.40 Type 2 diabetes mellitus with diabetic neuropathy, unspecified; I27.20 Pulmonary hypertension, unspecified; E83.42 Hypomagnesemia; B95.62 Methicillin resistant Staphylococcus aureus infection as the cause of diseases classified elsewhere; B96.89 Other specified bacterial agents as the cause of diseases classified elsewhere; I48.0 Paroxysmal atrial fibrillation; I43 Cardiomyopathy in diseases classified elsewhere; N18.2 Chronic kidney disease, stage 2 (mild); Z79.01 Long term (current) use of anticoagulants; I25.10 Atherosclerotic heart disease of native coronary artery without angina pectoris; I49.3 Ventricular premature depolarization; J98.01 Acute bronchospasm; I87.2 Venous insufficiency (chronic) (peripheral); E03.9 Hypothyroidism, unspecified; E66.9 Obesity, unspecified; Z79.4 Long term (current) use of insulin; Z87.440 Personal history of urinary (tract) infections; Z86.73 Personal history of transient ischemic attack (TIA), and cerebral infarction without residual deficits; Z95.0 Presence of cardiac pacemaker; Z87.891 Personal history of nicotine dependence
CPT/HCPCS: 36415; 71045; 80053; 81003; 82248; 82962; 83735; 83880; 84443; 85025; 87086; 87181; 94640; 94664; J1815; J7620